=== PATIENT | female | born 1950 | race Caucasian/White ===

== ENCOUNTER → 2016-09-11 | Day surgery (SDC) | payer OTHER, MEDICARE ==
[2016-08-28 08:46] VITALS: BMI 31.0
[~2016-09-11] VITALS: Ht 175.3 cm; Wt 95.5 kg
[~2016-09-11] MED LIST: AMLO-110 PO; BUSP-8 PO; CHOL100027 PO; HYDR25TA4 PO; LEVO100T PO; LIDOCAINE HCL 2% 2 ML VIAL (20MG/ML) ONE; POTA1TAB97 PO; PROPOFOL IV EMULSION 10 MG/ML 20 ML VIAL IV ONE; RANI300T2 PO; RMCI; SODIUM CHLORIDE 0.9% 500ML 500 ML IV ONE
--- NOTE | 2016-09-11 08:52 | Endo History and Physical ---
History & Physical Date of Service: Sep 11, 2016. Chief Complaint: Ulcerative colitis Referring Physician: Dr. Sutton History of Present Illness 66 yo CF who presents for colonoscopy secondary to Ulcerative colitis. Past Medical History Gastrointestinal Disorder, Anxiety, Reflux, High Cholesterol, Hypertension, Kidney Disease Past Surgical History Hx Cardiac Surgery: No Hx Internal Defibrillator: No Hx Pacemaker: No Hx Abdominal Surgery: Yes (CONRAD BSO, CORI) Hx of Implantable Prosthesis: No Hx Post-Op Nausea and Vomiting: No Hx Cancer Surgery: No Hx Thoracic Surgery: No Hx Orthopedic: No Hx Urinary Tract Surgery: No Family History Polyp Social History Smoking Status: Former Smoker Hx Substance Use: No Hx Alcohol Use: No Allergies Coded Allergies: Amoxicillin (Verified Allergy, Intermediate, RASH, 08/28/16) Clavulanic Acid (Verified Allergy, Intermediate, RASH, 08/28/16) Citalopram (Verified Allergy, Unknown, SICK, 08/28/16) Latex1 -Allergic Contact Dermititis (Verified Allergy, Unknown, RASH, ) Oxycodone (Verified Allergy, Unknown, RASH, SICK TO STOMACH, 08/28/16) Current Medications Reported Home Medications Medications Dose Route/Sig Max Daily Dose Days Date Category Dose Instructions Zantac (Ranitidine HCl) 300 Mg Tab 300 Mg PO QPM 08/28/16 Reported Buspirone Hcl 10 Mg Tab 10 Mg PO HS 08/28/16 Reported Synthroid (Levothyroxine Sodium) 100 Mcg Tab 100 Mcg PO QAM 09/03/14 Reported Remicade (Infliximab) 100 Mg/10 Ml Inj 5 UD 04/02/14 Reported INFUSE 5 MG/KG/Q 8 WEEKS K-Tab (Potassium Chloride) 20 Meq Tab 20 Meq PO DAILY AT LUNCH 04/02/14 Reported Vitamin D 1000 Unit (Cholecalciferol) 1,000 Unit Cap 1,000 Inter.unit PO QAM 04/02/14 Reported Hctz (Hydrochlorothiazide) 25 Mg Tab 25 Mg PO QAM 04/16/12 Reported Vital Signs Weight (Kilograms): 95.45 Height (Feet): 5 Height (Inches): 9 Physical Exam General Appearance: WD/WN, no apparent distress Respiratory/Chest: Auscultation: breath sounds normal Cardiovascular: Heart Auscultation: RRR Abdomen: Bowel Sounds: normal Inspection & Palpation: soft, non-distended, no tenderness, guarding & rebound Assessment and Plan Assessment: 66 yo CF who presents for colonoscopy secondary to Ulcerative colitis. Plan: Proceed with Colonoscopy.
[2016-09-11 08:54] VITALS: Ht 175.3 cm; Wt 95.5 kg
--- NOTE | 2016-09-11 09:54 | GI REPORT ---
Procedure Date: 09/11/2016 9:17 AM Procedure: Colonoscopy Indications: Suspected left-sided chronic ulcerative colitis Medicines: Monitored Anesthesia Care Complications: No immediate complications. Estimated Blood Loss: Estimated blood loss: none. Procedure: Pre-Anesthesia Assessment: - Prior to the procedure, a History and Physical was performed, and patient medications and allergies were reviewed. The patient's tolerance of previous anesthesia was also reviewed. The risks and benefits of the procedure and the sedation options and risks were discussed with the patient. All questions were answered, and informed consent was obtained. Prior Anticoagulants: The patient has taken no previous anticoagulant or antiplatelet agents. ASA Grade Assessment: II - A patient with mild systemic disease. After reviewing the risks and benefits, the patient was deemed in satisfactory condition to undergo the procedure. After I obtained informed consent, the scope was passed under direct vision. Throughout the procedure, the patient's blood pressure, pulse, and oxygen saturations were monitored continuously. The scope was introduced through the anus and advanced to the terminal ileum. The colonoscopy was performed without difficulty. The patient tolerated the procedure well. The quality of the bowel preparation was good. The terminal ileum, ileocecal valve, appendiceal orifice, and rectum were photographed. Findings: Non-bleeding internal hemorrhoids were found during retroflexion. The hemorrhoids were small. Two biopsies were taken every 10 cm with a cold forceps from the entire colon for ulcerative colitis surveillance. These biopsy specimens were sent to Pathology. Impression: - Non-bleeding internal hemorrhoids. - Biopsies for surveillance were taken from the entire colon. Recommendation: - Resume previous diet. - Continue present medications. - Repeat colonoscopy for surveillance based on pathology results. - Return to primary care physician as previously scheduled. David Hammer DO 09/11/2016 9:53:46 AM This report has been signed electronically. Note Initiated On: 09/11/2016 9:17 AM I attest to the content of the Intraoperative Record and orders documented therein, exceptions below
--- NOTE | 2016-09-11 09:55 | Discharge Instructions ---
Endoscopy Patient Instructions Date / Procedure(s) Performed Sep 11, 2016. Colonoscopy Allergy Information Coded Allergies: Amoxicillin (Verified Allergy, Intermediate, RASH, 08/28/16) Clavulanic Acid (Verified Allergy, Intermediate, RASH, 08/28/16) Citalopram (Verified Allergy, Unknown, SICK, 08/28/16) Latex1 -Allergic Contact Dermititis (Verified Allergy, Unknown, RASH, ) Oxycodone (Verified Allergy, Unknown, RASH, SICK TO STOMACH, 08/28/16) Discharge Date / Findings Sep 11, 2016. Random colon biopsies Internal hemorrhoids Medication Instructions OK to resume all medications today as prescribed Medications Dose Route/Sig Max Daily Dose Days Date Category Dose Instructions Zantac (Ranitidine HCl) 300 Mg Tab 300 Mg PO QPM 08/28/16 Reported Buspirone Hcl 10 Mg Tab 10 Mg PO HS 08/28/16 Reported Synthroid (Levothyroxine Sodium) 100 Mcg Tab 100 Mcg PO QAM 09/03/14 Reported Remicade (Infliximab) 100 Mg/10 Ml Inj 5 UD 04/02/14 Reported INFUSE 5 MG/KG/Q 8 WEEKS K-Tab (Potassium Chloride) 20 Meq Tab 20 Meq PO DAILY AT LUNCH 04/02/14 Reported Vitamin D 1000 Unit (Cholecalciferol) 1,000 Unit Cap 1,000 Inter.unit PO QAM 04/02/14 Reported Hctz (Hydrochlorothiazide) 25 Mg Tab 25 Mg PO QAM 04/16/12 Reported Provider Instructions Activity Restrictions - No exercising or heavy lifting for 24 hours. - Do not drink alcohol the day of the procedure. - Do not drive a car or operate machinery until the day after the procedure. - Do not make any important decisions or sign important papers in 24 hours after the procedure. Following Day: - Return to full activity which may include returning to work/school. Diet Start your diet with liquids and light foods (jello, soup, juice, toast). Then eat your usual diet if not nauseated. Treatment For Common After Affects For mild abdominal pain, bloating, or excessive gas: - Rest - Eat lightly - Lie on right side Follow-Up Information Follow-up with DR AGUILAR as scheduled Anesthesia Information What You Should Know You have had a procedure that required some medicine to reduce anxiety and discomfort. This treatment is called moderate sedation. After receiving the treatment, you may be sleepy, but you will be able to breathe on your own. The effects of the treatment may last for several hours. Follow these instructions along with Activity/Diet recommendations noted above: * Do NOT do anything where dizziness or clumsiness would be dangerous. * Rest quietly at home today, then you can be up and about tomorrow. * Have a responsible person stay with you the rest of today. * You may have had an I.V. today. If so, you may take the dressing off later today. Recommendations Call your doctor if: * Trouble breathing * Continuous vomiting for more than 24 hours * Temperature above 101 degrees * Severe abdominal pain or bloating * Pain not relieved by pain medicine ordered * There is increased drainage or redness from any incision * A large amount of rectal bleeding greater than 2-3 tablespoons. (If you had a polyp/s removed or have hemorrhoids, a small amount of blood - from the rectum is to be expected.) * You have any unanswered questions or concerns. IN THE EVENT OF A SERIOUS EMERGENCY, GO TO THE NEAREST EMERGENCY ROOM Your discharge instructions were prepared by provider David Hammer. Patient Instructions Signature Page Courtney Paige Patient (or Guardian) Signature/Date: I have read and understand the instructions given to me by my caregivers. Caregiver/RN/Doctor Signature/Date: The above-named patient and/or guardian has received patient instructions on this date. + Original Patient Signature Page (only) stays with chart. Please make copy for patient.
--- NOTE | 2016-09-11 10:15 | Anesthesiology Progress Note ---
Anesthesia Post Op Note Date & Time Sep 11, 2016 at 10:14 Vital Signs Pain Intensity: 0 Vital Signs Past 12 Hours Date Time Temp Pulse Resp B/P (MAP) Pulse Ox O2 Delivery O2 Flow Rate FiO2 09/11/16 10:04 57 20 142/98 98 Room Air 09/11/16 09:49 66 24 141/84 (103) 98 Room Air 09/11/16 08:53 36.5 63 20 165/89 (114) 98 Room Air Notes Mental Status: alert / awake / arousable, participated in evaluation Pt Amnestic to Procedure: Yes Nausea / Vomiting: adequately controlled Pain: adequately controlled Airway Patency, RR, SpO2: stable & adequate BP & HR: stable & adequate Hydration State: stable & adequate Anesthetic Complications: no major complications apparent
[2016-09-11 10:19] VITALS: BP 157/93; PULSE 59; O2SAT 100
== END | disposition home or self-care (01) ==
LOC: C.GI 08:25
PROVIDERS: ATTEND Internal Medicine
DX: K51.90 Ulcerative colitis, unspecified, without complications (principal); K64.8 Other hemorrhoids; I10 Essential (primary) hypertension; E78.00 Pure hypercholesterolemia, unspecified; N28.9 Disorder of kidney and ureter, unspecified; K21.9 Gastro-esophageal reflux disease without esophagitis; F41.9 Anxiety disorder, unspecified; Z87.891 Personal history of nicotine dependence; Z83.71 Family history of colonic polyps; Z79.899 Other long term (current) drug therapy

== ENCOUNTER → 2016-09-17 | Outpatient (CLI) | payer OTHER, MEDICARE ==
[~2016-09-17] MED LIST changes: -LIDOCAINE HCL 2% 2 ML VIAL (20MG/ML) ONE; -PROPOFOL IV EMULSION 10 MG/ML 20 ML VIAL IV ONE; -SODIUM CHLORIDE 0.9% 500ML 500 ML IV ONE
[2016-09-17 11:40] LABS: HEMATOCRIT 41.9 % (37-47); MEAN CELL VOLUME 88.6 fL (80-100); MEAN CORPUSCULAR HEMOGLOBIN 29.8 pg (25-34); MEAN CORPUSCULAR HGB CONC 33.7 g/dl (32-36); MEAN PLATELET VOLUME 9.2 fL (7.4-10.4); PLATELET COUNT 289 K/uL (130-400); RED BLOOD COUNT 4.73 M/uL (4.2-5.4); WHITE BLOOD COUNT 6.01 K/uL (4.8-10.8)
[2016-09-17 12:19] LABS: ALT/SGPT 37 U/L (12-78); BLOOD UREA NITROGEN 10 mg/dl (7-18); BUN/CREATININE RATIO 10.7 (10-20); C-REACTIVE PROTEIN < 0.29 mg/dl (0-0.29); CALCIUM 8.8 mg/dl (8.5-10.1); CARBON DIOXIDE 29 mmol/L (21-32); CHLORIDE 104 mmol/L (98-107); CREATININE 0.95 mg/dl (0.60-1.20); GLUCOSE 83 mg/dl (70-99); POTASSIUM 3.5 mmol/L (3.5-5.1); SODIUM 140 mmol/L (136-145)
[2016-09-17 12:21] LABS: ALB/GLOB RATIO 1.1 (0.9-2); ALKALINE PHOSPHATASE 90 U/L (45-117); AST/SGOT 28 U/L (15-37)
[2016-09-17 12:45] LABS: BASO % 0.7 %; BASO ABS # 0.04 K/uL (0-0.2); COMPLETE YES; EOS % 3.2 %; IG% 0.2 %; LYMPH % 51.7 %; LYMPH ABS # 3.11 K/uL (1.2-3.4); MONO % 7.5 %; NEUT % 36.7 %
[2016-09-21 15:38] LABS: QUANTIF TB AG-NIL 0.01 IU/ML; QUANTIFERON NIL 0.03 IU/ML
== END | disposition home or self-care (01) ==
LOC: C.LAB1850 10:40
PROVIDERS: ATTEND Internal Medicine
DX: K51.90 Ulcerative colitis, unspecified, without complications (principal); K62.5 Hemorrhage of anus and rectum; R19.7 Diarrhea, unspecified

== ENCOUNTER 2016-10-06 09:43 | Emergency (ER) | payer OTHER, MEDICARE ==
[~2016-10-06] VITALS: Ht 177.8 cm; Wt 98.3 kg
[~2016-10-06 09:43] MED LIST changes: -AMLO-110 PO
[2016-10-06 09:55] VITALS: TEMP 36.7; Ht 177.8 cm; Wt 98.3 kg
[2016-10-06 11:20] LABS: BASO % 0.6 %; BASO ABS # 0.04 K/uL (0-0.2); COMPLETE YES; EOS % 3.5 %; HEMATOCRIT 45.7 % (37-47); IG% 0.3 %; LYMPH % 43.2 %; MEAN CELL VOLUME 88.2 fL (80-100); MEAN CORPUSCULAR HGB CONC 32.8 g/dl (32-36); MEAN PLATELET VOLUME 9.5 fL (7.4-10.4); MONO % 11.7 %; NEUT % 40.7 %; PLATELET COUNT 304 K/uL (130-400); RED BLOOD COUNT 5.18 M/uL (4.2-5.4); WHITE BLOOD COUNT 6.25 K/uL (4.8-10.8)
[2016-10-06 11:29] LABS: ALT/SGPT 52 U/L (12-78); AST/SGOT 30 U/L (15-37); BLOOD UREA NITROGEN 9 mg/dl (7-18); BUN/CREATININE RATIO 9.9 (10-20); CALCIUM 9.3 mg/dl (8.5-10.1); CARBON DIOXIDE 27 mmol/L (21-32); CHLORIDE 103 mmol/L (98-107); CREATININE 0.92 mg/dl (0.60-1.20); GLUCOSE 112 mg/dl (70-99); POTASSIUM 3.7 mmol/L (3.5-5.1); SODIUM 138 mmol/L (136-145)
--- NOTE | 2016-10-06 11:32 | DIAGNOSTIC IMAGING REPORT ---
HEAD WITHOUT CONTRAST (CT) HISTORY: 66-year-old female presents with acute right-sided headache with hypertension. TECHNIQUE: Multiple axial CT images of the head were obtained without contrast. COMPARISON: None. FINDINGS: No acute intracranial hemorrhage, midline shift, mass, large territorial ischemia or abnormal extra-axial collection. There is mild central atrophy. Confluent areas of low-attenuation are seen within the periventricular, deep and subcortical white matter of the cerebral hemispheres bilaterally. The calvarium is intact. The paranasal sinuses, mastoid air cells, and middle ear cavities are clear. IMPRESSION: 1. No acute intracranial abnormality. Negative for hemorrhage or large territorial ischemia. 2. Mild atrophy with chronic microvascular ischemic changes. The above report was generated using voice recognition software. It may contain grammatical, syntax or spelling errors. Electronically signed by: Bob Suarez M.D. 10/06/2016 11:31 AM Dictated Date/Time: 10/06/2016 11:28 AM
[2016-10-06 11:34] LABS: ALKALINE PHOSPHATASE 98 U/L (45-117)
--- NOTE | 2016-10-06 11:57 | DIAGNOSTIC IMAGING REPORT ---
CHEST ONE VIEW PORTABLE CLINICAL HISTORY: Chest Pain dyspnea COMPARISON STUDY: 11/25/2015 FINDINGS: The bones soft tissues and hemidiaphragms are normal. The cardiomediastinal silhouette is normal. The lungs are clear. The pulmonary vasculature is normal. IMPRESSION: Negative chest. Electronically signed by: Manoj Hobbs M.D. 10/06/2016 11:56 AM Dictated Date/Time: 10/06/2016 11:55 AM
[2016-10-06 14:52] VITALS: BP 166/105; PULSE 66; O2SAT 98
--- NOTE | 2016-10-06 17:33 | EMERGENCY ROOM VISIT NOTE ---
History Report prepared by Shakira: Domenic Quintanilla Under the Supervision of: Dr. Syed Galvan D.O. First contact with patient: 10:48 Chief Complaint: CARDIAC ASSESSMENT Stated Complaint: HIGH BLOOD PRESSURE Nursing Triage Summary: pt reports chest discomfort intermittently " indigestion" mid chest X 2 weeks , pt reports ORDOÑEZ 3-4 days . Had a remicaid infusion 1 day ago and BP 200/119 and cont with chest discomfort and ORDOÑEZ seems worse today denies NV or vision changes History of Present Illness The patient is a 66 year old female who presents to the Emergency Room with complaints of intermittent headaches beginning 5 days ago. She also complains of intermittent "indigestion/burning" in her chest. The patient notes that she had a Remicade infusion yesterday for ulcerative colitis and was found to have a blood pressure of 200/119. She states that she called her PCP about her symptoms and was referred to the ED. She notes that she frequently gets indigestion/burning after taking her medications specifically her potassium, but states that it typically resolved easily with Omeprazole. There is no exertional component. She denies any arm pain, jaw pain, sweating or shortness of breath. Patient notes that her burning is worse when she lies flat. It resolves/improves when she sits up. She also notes that her burning in her chest occurs generally 3-4 hours after taking her potassium pills. She has been having these symptoms for the past 4 years. Over the past week the same symptoms have gotten worse. She has doubled her PPI and notes that this does give her improvement in her symptoms. She has a known history of hypertension and hyperlipidemia, but has no history of cardiac disease. She had a cardiac catheterization last year after being short of breath with chest pain and arm numbness which was completely normal. Pt denies change in vision, fevers, arm pain, neck pain, nausea, vomiting, diarrhea, pain with urination, and melena. She states that she has been taking her blood pressure medications normally. She denies any recent changes to her medication. Source of History: patient Onset: 5 days ago Position: head Timing: intermittent Associated Symptoms: + chest pain ("indigestion"-like), No fevers, No neck pain, No SOB, No nausea, No vomiting, No diarrhea, No urinary symptoms Note: The patient also complains of hypertension. She denies any arm pain. Review of Systems See HPI for pertinent positives & negatives. A total of 10 systems reviewed and were otherwise negative. Past Medical & Surgical Medical Problems: (1) Anxiety disorder (2) Cholecystitis (3) CKD (chronic kidney disease) stage 3, GFR 30-59 ml/min (4) Dyslipidemia (5) Hypertension (6) Hypothyroidism (7) Ulcerative colitis Surgical Problems: (1) History of cardiac cath (2) History of hysterectomy (3) History of tonsillectomy and adenoidectomy (4) S/P cholecystectomy Family History No pertinent family history Social History Smoking Status: Never Smoker Alcohol Use: none Drug Use: none Housing Status: lives alone Occupation Status: unemployed Current/Historical Medications Scheduled Buspirone Hcl (Buspirone Hcl), 10 MG PO HS Cholecalciferol (Vitamin D 1000 Unit), 1,000 INTER.UNIT PO QAM Hydrochlorothiazide (Hctz), 25 MG PO QAM Infliximab (Remicade), 5 UD Levothyroxine Sodium (Synthroid), 100 MCG PO QAM Potassium Chloride (K-Tab), 20 MEQ PO DAILY AT LUNCH Allergies Coded Allergies: Amoxicillin (Verified Allergy, Intermediate, RASH, 08/28/16) Clavulanic Acid (Verified Allergy, Intermediate, RASH, 08/28/16) Citalopram (Verified Allergy, Unknown, SICK, 08/28/16) Latex1 -Allergic Contact Dermititis (Verified Allergy, Unknown, RASH, ) Oxycodone (Verified Allergy, Unknown, RASH, SICK TO STOMACH, 08/28/16) Physical Exam Vital Signs Date Time Temp Pulse Resp B/P (MAP) Pulse Ox O2 Delivery O2 Flow Rate FiO2 10/06/16 14:52 66 16 166/105 98 10/06/16 13:09 72 10/06/16 12:55 64 17 179/99 98 Room Air 10/06/16 11:16 64 15 161/95 97 Room Air 10/06/16 10:30 67 10/06/16 09:55 36.7 71 20 203/100 99 Room Air Physical Exam GENERAL: Sitting up in bed, alert, well appearing, well nourished, no distress, non-toxic EYE EXAM: normal conjunctiva, PERRL and EOM's intact OROPHARYNX: no exudate, no erythema, lips, buccal mucosa, and tongue normal and mucous membranes are moist NECK: supple, no nuchal rigidity, no adenopathy, non-tender LUNGS: Clear to auscultation. Normal chest wall mechanics HEART: no murmurs, S1 normal and S2 normal ABDOMEN: abdomen soft, non-tender, normo-active bowel sounds, no masses, no rebound or guarding. BACK: Back is symmetrical on inspection and there is no deformity, no midline tenderness, no CVA tenderness. SKIN: no rashes and no bruising UPPER EXTREMITIES: upper extremities are grossly normal. LOWER EXTREMITIES: No pitting edema. NEURO EXAM: Normal sensorium, cranial nerves II-XII intact, normal speech, no weakness of arms, no weakness of legs. No drift. Finger to nose intact. Gross sensation intact. Medical Decision & Procedures ER Provider Diagnostic Interpretation: Radiology results as stated below per my review and the radiologist's interpretation: HEAD WITHOUT CONTRAST (CT) FINDINGS: No acute intracranial hemorrhage, midline shift, mass, large territorial ischemia or abnormal extra-axial collection. There is mild central atrophy. Confluent areas of low-attenuation are seen within the periventricular, deep and subcortical white matter of the cerebral hemispheres bilaterally. The calvarium is intact. The paranasal sinuses, mastoid air cells, and middle ear cavities are clear. IMPRESSION: 1. No acute intracranial abnormality. Negative for hemorrhage or large territorial ischemia. 2. Mild atrophy with chronic microvascular ischemic changes. The above report was generated using voice recognition software. It may contain grammatical, syntax or spelling errors. Electronically signed by: Bob Suarez M.D. CHEST ONE VIEW PORTABLE FINDINGS: The bones soft tissues and hemidiaphragms are normal. The cardiomediastinal silhouette is normal. The lungs are clear. The pulmonary vasculature is normal. IMPRESSION: Negative chest. Electronically signed by: Manoj Hobbs M.D. Laboratory Results 10/06/16 10:24 Red Blood Count 5.18, Mean Corpuscular Volume 88.2, Mean Corpuscular Hemoglobin 29.0, Mean Corpuscular Hemoglobin Concent 32.8, Mean Platelet Volume 9.5, Neutrophils (%) (Auto) 40.7, Lymphocytes (%) (Auto) 43.2, Monocytes (%) (Auto) 11.7, Eosinophils (%) (Auto) 3.5, Basophils (%) (Auto) 0.6, Neutrophils # (Auto ) 2.54, Lymphocytes # (Auto) 2.70, Monocytes # (Auto) 0.73, Eosinophils # (Auto ) 0.22, Basophils # (Auto) 0.04 10/06/16 10:24 Test 10/06/16 10:24 10/06/16 13:45 White Blood Count 6.25 K/uL (4.8-10.8) Red Blood Count 5.18 M/uL (4.2-5.4) Hemoglobin 15.0 g/dL (12.0-16.0) Hematocrit 45.7 % (37-47) Mean Corpuscular Volume 88.2 fL (80-100) Mean Corpuscular Hemoglobin 29.0 pg (25-34) Mean Corpuscular Hemoglobin Concent 32.8 g/dl (32-36) Platelet Count 304 K/uL (130-400) Mean Platelet Volume 9.5 fL (7.4-10.4) Neutrophils (%) (Auto) 40.7 % Lymphocytes (%) (Auto) 43.2 % Monocytes (%) (Auto) 11.7 % Eosinophils (%) (Auto) 3.5 % Basophils (%) (Auto) 0.6 % Neutrophils # (Auto) 2.54 K/uL (1.4-6.5) Lymphocytes # (Auto) 2.70 K/uL (1.2-3.4) Monocytes # (Auto) 0.73 K/uL (0.11-0.59) Eosinophils # (Auto) 0.22 K/uL (0-0.5) Basophils # (Auto) 0.04 K/uL (0-0.2) RDW Standard Deviation 41.7 fL (36.4-46.3) RDW Coefficient of Variation 13.0 % (11.5-14.5) Immature Granulocyte % (Auto) 0.3 % Immature Granulocyte # (Auto) 0.02 K/uL (0.00-0.02) Anion Gap 8.0 mmol/L (3-11) Est Creatinine Clear Calc Drug Dose 76.4 ml/min Estimated GFR () 75.2 Estimated GFR (Non- 64.9 BUN/Creatinine Ratio 9.9 (10-20) Calcium Level 9.3 mg/dl (8.5-10.1) Total Bilirubin 0.3 mg/dl (0.2-1) Direct Bilirubin < 0.1 mg/dl (0-0.2) Aspartate Amino Transf (AST/SGOT) 30 U/L (15-37) Alanine Aminotransferase (ALT/SGPT) 52 U/L (12-78) Alkaline Phosphatase 98 U/L (45-117) Total Creatine Kinase 97 U/L (26-192) Creatine Kinase MB < 0.5 ng/ml (0.5-3.6) Creatine Kinase MB Ratio (0-3.0) Total Protein 7.5 gm/dl (6.4-8.2) Albumin 3.8 gm/dl (3.4-5.0) Lipase 227 U/L (73-393) Troponin I < 0.015 ng/ml (0-0.045) Laboratory results per my review. ECG Indication: chest pain Rate (beats per minute): 67 Rhythm: sinus rhythm Findings: no ectopy, other (Normal axis) Comparison ECG Date: November 25, 2015 Change: no significant change ED Course ED COURSE: Vital signs were reviewed and showed hypertension The patients medical record was reviewed The above diagnostic studies were performed and reviewed. ED treatments and interventions as stated above. 1054: The patient was evaluated in room B7. A complete history and physical examination was performed. 1301: I spoke with the patient and offered admission. She declined and would like to go home. She notes that her most recent reflux episode was about 4 hours ago. 1430: Upon reevaluation, the patient is resting comfortably. I discussed my findings with the patient and she understands and agrees with the treatment plan. Case management will set up outpatient follow-up for the patient. Based on the patients age, coexisting illnesses, exam and lab findings the decision to treat as an outpatient was made. The patient remained stable while under my care. The patient appeared well at the time of discharge. Medical Decision Differential Diagnosis includes but is not limited to headache, tension headache , cluster headache, migraine, subarachnoid hemorrhage, meningitis, mass, central venous thrombus, concussion, trauma and epidural/subdural hemorrhage. Blood pressure screening: Patient was found to have an elevated blood pressure and was referred to their primary doctor for recheck and further treatment. Medication Reconciliation: I attest that I have personally reviewed the patient' s current medication list. Patient is a 66-year-old female with a history of hypertension that presents the ER for headache, hypertension and a intermittent burning in her chest. She notes her headache has been intermittent for the past 4-5 days. No fevers. No signs of meningitis or encephalitis. CT head was negative. Chest x-ray was unremarkable. Patient's blood pressure was elevated at 200 the trended down to 160s without intervention. EKG was unremarkable. Patient also complains of a chest burning which she has had off-and-on for the past 4 years. She notes that recently has been getting worse. It is exacerbated by lying flat and she gets it almost consistently 3 hours after taking her oral potassium pills. This burning resolves with omeprazole and tracks from her epigastric region up to the back of her tongue. Last time she had these symptoms was at 3 AM. Troponins were negative 8 hours following this discomfort. Troponin was negative 2. And history supports that this is reflux. Offered observation patient declined. I felt this was reasonable patient was discharged follow with her PCP. Set up appointment for tomorrow with PCP however patient did not want to see the PA and consequently had to be scheduled for Wednesday. Discussed with Pt concerning signs and symptoms to watch out for. Pt was instructed to follow up with their PCP and discussed with the patient their option to return to the ED at anytime for persistent or worsening symptoms. The appropriate anticipatory guidance and out-patient management, including indications for return to the emergency department, were explained at length to the patient and understood. Impression Primary Impression: HTN (hypertension) Additional Impressions: Headache Acid reflux Scribe Attestation The scribe's documentation has been prepared under my direction and personally reviewed by me in its entirety. I confirm that the note above accurately reflects all work, treatment, procedures, and medical decision making performed by me. Departure Information Dispostion Home / Self-Care Referrals Ad Sutton M.D. (PCP) Forms IMPORTANT VISIT INFORMATION Patient Instructions ED GERD, ED HTN Established, My [facility] Additional Instructions Please follow up with your primary care doctor with in the next 24 hours. Any worsening of your symptoms, please return to the ED immediately. For chest pain , shortness breath, arm pain, jaw pain, swelling, confusion, weakness or numbness in arms or legs, or any other concerning signs or symptoms from your standpoint. Problem Qualifiers Primary Impression: HTN (hypertension) Hypertension type: unspecified Qualified Codes: I10 - Essential (primary) hypertension Additional Impressions: Headache Headache type: unspecified Headache chronicity pattern: acute headache Intractability: not intractable Qualified Codes: R51 - Headache Acid reflux Esophagitis presence: esophagitis presence not specified Qualified Codes: K21.9 - Gastro-esophageal reflux disease without esophagitis
[2016-11-20] MEDS ORDERED: RANI300T2 PO (07:40)
[2016-11-20] MEDS ORDERED: AMLO-110 PO (07:40)
== END 2016-10-06 14:53 | disposition home or self-care (01) ==
LOC: C.EDB 09:45
DX: I10 Essential (primary) hypertension (principal); R51 Headache; K21.9 Gastro-esophageal reflux disease without esophagitis; F41.9 Anxiety disorder, unspecified; N18.3 Chronic kidney disease, stage 3 (moderate); E78.5 Hyperlipidemia, unspecified; E03.9 Hypothyroidism, unspecified; K51.90 Ulcerative colitis, unspecified, without complications; Z79.899 Other long term (current) drug therapy

== ENCOUNTER → 2016-11-27 | Day surgery (SDC) | payer OTHER, MEDICARE ==
[2016-11-20 07:41] VITALS: BMI 31.0
[2016-11-20 07:47] VITALS: Ht 175.3 cm; Wt 95.5 kg
[~2016-11-27] VITALS: Ht 175.3 cm; Wt 95.5 kg
[~2016-11-27] MED LIST changes: +AMLO-110 PO; +LIDOCAINE HCL 2% 2 ML VIAL (20MG/ML) ONE; +PROPOFOL IV EMULSION 10 MG/ML 20 ML VIAL IV ONE; +SODIUM CHLORIDE 0.9% 500ML 500 ML IV ONE
--- NOTE | 2016-11-27 12:14 | Endo History and Physical ---
History & Physical Date of Service: Nov 27, 2016. Chief Complaint: Rectal Bleeding/ Indigestion and Burning Referring Physician: Dr Sutton History of Present Illness 66 yo CF who presents for colonoscopy secondary to rectal bleeding and EGD secondary to indigestion, burning and rectal bleeding. Past Medical History Gastrointestinal Disorder, Anxiety, Reflux, High Cholesterol, Hypertension, Kidney Disease Past Surgical History Hx Cardiac Surgery: No Hx Internal Defibrillator: No Hx Pacemaker: No Hx Abdominal Surgery: Yes (CONRAD BSO, CORI) Hx of Implantable Prosthesis: No Hx Post-Op Nausea and Vomiting: No Hx Cancer Surgery: No Hx Thoracic Surgery: No Hx Orthopedic: No Hx Urinary Tract Surgery: No Family History Polyp Social History Smoking Status: Former Smoker Hx Substance Use: No Hx Alcohol Use: No Allergies Coded Allergies: Amoxicillin (Verified Allergy, Intermediate, RASH, 11/27/16) Clavulanic Acid (Verified Allergy, Intermediate, RASH, 11/27/16) Citalopram (Verified Allergy, Unknown, SICK, 11/27/16) Clindamycin (Verified Allergy, Unknown, "MAKES MY COLITIS BLEED", 11/27/16) Latex1 -Allergic Contact Dermititis (Verified Allergy, Unknown, RASH, ) Oxycodone (Verified Allergy, Unknown, RASH, SICK TO STOMACH, 11/27/16) Current Medications Reported Home Medications Medications Dose Route/Sig Max Daily Dose Days Date Category Dose Instructions Zantac (Ranitidine HCl) 300 Mg Tab 300 Mg PO BID 11/20/16 Reported Norvasc (Amlodipine Besylate) 5 Mg Tab 5 Mg PO QAM 11/20/16 Reported Buspirone Hcl 10 Mg Tab 10 Mg PO HS 08/28/16 Reported Synthroid (Levothyroxine Sodium) 100 Mcg Tab 100 Mcg PO QAM 09/03/14 Reported Remicade (Infliximab) 100 Mg/10 Ml Inj 5 UD 04/02/14 Reported INFUSE 5 MG/KG/Q 8 WEEKS K-Tab (Potassium Chloride) 20 Meq Tab 20 Meq PO DAILY AT LUNCH 04/02/14 Reported Vitamin D 1000 Unit (Cholecalciferol) 1,000 Unit Cap 1,000 Inter.unit PO QAM 04/02/14 Reported Hctz (Hydrochlorothiazide) 25 Mg Tab 25 Mg PO QAM 04/16/12 Reported Vital Signs Weight (Kilograms): 95.45 Height (Feet): 5 Height (Inches): 9 Physical Exam General Appearance: WD/WN, no apparent distress Respiratory/Chest: Auscultation: breath sounds normal Cardiovascular: Heart Auscultation: RRR Abdomen: Bowel Sounds: normal Inspection & Palpation: soft, non-distended, no tenderness, guarding & rebound Assessment and Plan Assessment: 66 yo CF who presents for colonoscopy secondary to rectal bleeding and EGD secondary to indigestion, burning and rectal bleeding. Plan: Proceed with EGD and Colonoscopy.
--- NOTE | 2016-11-27 12:55 | GI REPORT ---
Procedure Date: 11/27/2016 12:07 PM Procedure: Upper GI endoscopy Indications: Epigastric abdominal pain, Gastro-esophageal reflux disease Medicines: Monitored Anesthesia Care Complications: No immediate complications. Estimated Blood Loss: Estimated blood loss: none. Procedure: Pre-Anesthesia Assessment: - Prior to the procedure, a History and Physical was performed, and patient medications and allergies were reviewed. The patient's tolerance of previous anesthesia was also reviewed. The risks and benefits of the procedure and the sedation options and risks were discussed with the patient. All questions were answered, and informed consent was obtained. Prior Anticoagulants: The patient has taken no previous anticoagulant or antiplatelet agents. ASA Grade Assessment: II - A patient with mild systemic disease. After reviewing the risks and benefits, the patient was deemed in satisfactory condition to undergo the procedure. After obtaining informed consent, the endoscope was passed under direct vision. Throughout the procedure, the patient's blood pressure, pulse, and oxygen saturations were monitored continuously. The scope was introduced through the mouth, and advanced to the second part of duodenum. The upper GI endoscopy was accomplished without difficulty. The patient tolerated the procedure well. Findings: Mildly severe esophagitis with no bleeding was found. Biopsies were taken with a cold forceps for histology. Localized moderate inflammation characterized by erythema was found in the gastric antrum. Biopsies were taken with a cold forceps for histology. The examined duodenum was normal. Impression: - Mildly severe chronic esophagitis. Biopsied. - Gastritis. Biopsied. - Normal examined duodenum. Recommendation: - Resume previous diet. - Continue present medications. - Await pathology results. - Return to primary care physician as previously scheduled. David Hammer, 11/27/2016 12:55:31 PM This report has been signed electronically. Note Initiated On: 11/27/2016 12:07 PM I attest to the content of the Intraoperative Record and orders documented therein, exceptions below
--- NOTE | 2016-11-27 12:58 | GI REPORT ---
Procedure Date: 11/27/2016 12:08 PM Procedure: Colonoscopy Indications: Rectal bleeding Medicines: Monitored Anesthesia Care Complications: No immediate complications. Estimated Blood Loss: Estimated blood loss: none. Procedure: Pre-Anesthesia Assessment: - Prior to the procedure, a History and Physical was performed, and patient medications and allergies were reviewed. The patient's tolerance of previous anesthesia was also reviewed. The risks and benefits of the procedure and the sedation options and risks were discussed with the patient. All questions were answered, and informed consent was obtained. Prior Anticoagulants: The patient has taken no previous anticoagulant or antiplatelet agents. ASA Grade Assessment: II - A patient with mild systemic disease. After reviewing the risks and benefits, the patient was deemed in satisfactory condition to undergo the procedure. After I obtained informed consent, the scope was passed under direct vision. Throughout the procedure, the patient's blood pressure, pulse, and oxygen saturations were monitored continuously. The scope was introduced through the anus and advanced to the terminal ileum. The colonoscopy was performed without difficulty. The patient tolerated the procedure well. The quality of the bowel preparation was good. The terminal ileum, ileocecal valve, appendiceal orifice, and rectum were photographed. Findings: Inflammation characterized by erythema was found in a continuous and circumferential pattern from the rectum to the cecum. This was mild in severity. Biopsies were taken with a cold forceps for histology. Non-bleeding internal hemorrhoids were found during retroflexion. The hemorrhoids were small. Impression: - Inflammation was found from the rectum to the cecum secondary to pancolitis ulcerative colitis. Biopsied. - Non-bleeding internal hemorrhoids. Recommendation: - Resume previous diet. - Continue present medications. - Repeat colonoscopy for surveillance based on pathology results. - Return to primary care physician as previously scheduled. David Hammer DO 11/27/2016 12:57:41 PM This report has been signed electronically. Note Initiated On: 11/27/2016 12:08 PM I attest to the content of the Intraoperative Record and orders documented therein, exceptions below
--- NOTE | 2016-11-27 13:02 | Discharge Instructions ---
Endoscopy Patient Instructions Date / Procedure(s) Performed Nov 27, 2016. Colonoscopy, EGD Allergy Information Coded Allergies: Amoxicillin (Verified Allergy, Intermediate, RASH, 11/27/16) Clavulanic Acid (Verified Allergy, Intermediate, RASH, 11/27/16) Citalopram (Verified Allergy, Unknown, SICK, 11/27/16) Clindamycin (Verified Allergy, Unknown, "MAKES MY COLITIS BLEED", 11/27/16) Latex1 -Allergic Contact Dermititis (Verified Allergy, Unknown, RASH, ) Oxycodone (Verified Allergy, Unknown, RASH, SICK TO STOMACH, 11/27/16) Discharge Date / Findings Nov 27, 2016. EGD: Gastritis s/p biopsies, Mid-esophageal biopsies Colonoscopy: Ulcerative colitis s/p biopsies, Internal hemorrhoids Medication Instructions OK to resume all medications today as prescribed Reported Home Medications Medications Dose Route/Sig Max Daily Dose Days Date Category Dose Instructions Zantac (Ranitidine HCl) 300 Mg Tab 300 Mg PO BID 11/20/16 Reported Norvasc (Amlodipine Besylate) 5 Mg Tab 5 Mg PO QAM 11/20/16 Reported Buspirone Hcl 10 Mg Tab 10 Mg PO HS 08/28/16 Reported Synthroid (Levothyroxine Sodium) 100 Mcg Tab 100 Mcg PO QAM 09/03/14 Reported Remicade (Infliximab) 100 Mg/10 Ml Inj 5 UD 04/02/14 Reported INFUSE 5 MG/KG/Q 8 WEEKS K-Tab (Potassium Chloride) 20 Meq Tab 20 Meq PO DAILY AT LUNCH 04/02/14 Reported Vitamin D 1000 Unit (Cholecalciferol) 1,000 Unit Cap 1,000 Inter.unit PO QAM 04/02/14 Reported Hctz (Hydrochlorothiazide) 25 Mg Tab 25 Mg PO QAM 04/16/12 Reported Provider Instructions Activity Restrictions - No exercising or heavy lifting for 24 hours. - Do not drink alcohol the day of the procedure. - Do not drive a car or operate machinery until the day after the procedure. - Do not make any important decisions or sign important papers in 24 hours after the procedure. Following Day: - Return to full activity which may include returning to work/school. Diet Start your diet with liquids and light foods (jello, soup, juice, toast). Then eat your usual diet if not nauseated. Treatment For Common After Affects For mild abdominal pain, bloating, or excessive gas: - Rest - Eat lightly - Lie on right side Follow-Up Information Follow-up with Dr Sutton as scheduled Anesthesia Information What You Should Know You have had a procedure that required some medicine to reduce anxiety and discomfort. This treatment is called moderate sedation. After receiving the treatment, you may be sleepy, but you will be able to breathe on your own. The effects of the treatment may last for several hours. Follow these instructions along with Activity/Diet recommendations noted above: * Do NOT do anything where dizziness or clumsiness would be dangerous. * Rest quietly at home today, then you can be up and about tomorrow. * Have a responsible person stay with you the rest of today. * You may have had an I.V. today. If so, you may take the dressing off later today. Recommendations Call your doctor if: * Trouble breathing * Continuous vomiting for more than 24 hours * Temperature above 101 degrees * Severe abdominal pain or bloating * Pain not relieved by pain medicine ordered * There is increased drainage or redness from any incision * A large amount of rectal bleeding greater than 2-3 tablespoons. (If you had a polyp/s removed or have hemorrhoids, a small amount of blood - from the rectum is to be expected.) * You have any unanswered questions or concerns. IN THE EVENT OF A SERIOUS EMERGENCY, GO TO THE NEAREST EMERGENCY ROOM Your discharge instructions were prepared by provider David Hammer. Patient Instructions Signature Page Courtney Paige Patient (or Guardian) Signature/Date: I have read and understand the instructions given to me by my caregivers. Caregiver/RN/Doctor Signature/Date: The above-named patient and/or guardian has received patient instructions on this date. + Original Patient Signature Page (only) stays with chart. Please make copy for patient.
--- NOTE | 2016-11-27 13:14 | Anesthesiology Progress Note ---
Anesthesia Post Op Note Date & Time Nov 27, 2016 at 13:14 Vital Signs Pain Intensity: 0 Vital Signs Past 12 Hours Date Time Temp Pulse Resp B/P (MAP) Pulse Ox O2 Delivery O2 Flow Rate FiO2 11/27/16 12:52 67 18 132/ (44) 98 Room Air 11/27/16 12:12 36.6 79 16 133/75 (94) 97 Room Air Notes Mental Status: alert / awake / arousable, participated in evaluation Pt Amnestic to Procedure: Yes Nausea / Vomiting: adequately controlled Pain: adequately controlled Airway Patency, RR, SpO2: stable & adequate BP & HR: stable & adequate Hydration State: stable & adequate Anesthetic Complications: no major complications apparent
[2016-11-27 13:23] VITALS: BP 152/90; PULSE 67; O2SAT 98
== END | disposition home or self-care (01) ==
LOC: C.GI 11:46
PROVIDERS: ATTEND Internal Medicine
DX: K29.50 Unspecified chronic gastritis without bleeding (principal); K20.9 Esophagitis, unspecified; K64.8 Other hemorrhoids; R10.13 Epigastric pain; K51.90 Ulcerative colitis, unspecified, without complications; I12.9 Hypertensive chronic kidney disease with stage 1 through stage 4 chronic kidney disease, or unspecified chronic kidney disease; N18.9 Chronic kidney disease, unspecified; E78.00 Pure hypercholesterolemia, unspecified; Z87.891 Personal history of nicotine dependence

== ENCOUNTER → 2017-04-07 | Outpatient (CLI) | payer OTHER, MEDICARE ==
[~2017-04-07] MED LIST changes: -LIDOCAINE HCL 2% 2 ML VIAL (20MG/ML) ONE; -PROPOFOL IV EMULSION 10 MG/ML 20 ML VIAL IV ONE; -SODIUM CHLORIDE 0.9% 500ML 500 ML IV ONE
[2017-04-07 13:18] LABS: BASO % 0.6 %; BASO ABS # 0.04 K/uL (0-0.2); EOS % 2.8 %; EOS ABS # 0.18 K/uL (0-0.5); HEMATOCRIT 42.6 % (37-47); HEMOGLOBIN 14.4 g/dL (12.0-16.0); IG# 0.01 K/uL (0.00-0.02); LYMPH % 47.4 %; LYMPH ABS # 3.05 K/uL (1.2-3.4); MEAN CELL VOLUME 87.7 fL (80-100); MEAN CORPUSCULAR HEMOGLOBIN 29.6 pg (25-34); MEAN CORPUSCULAR HGB CONC 33.8 g/dl (32-36); MEAN PLATELET VOLUME 9.4 fL (7.4-10.4); MONO % 9.5 %; MONO ABS # 0.61 K/uL (0.11-0.59); NEUT % 39.5 %; NEUT ABS # 2.55 K/uL (1.4-6.5); PLATELET COUNT 301 K/uL (130-400); RED CELL DISTRIBUTION WIDTH CV 13.1 % (11.5-14.5); RED CELL DISTRIBUTION WIDTH SD 41.7 fL (36.4-46.3); WHITE BLOOD COUNT 6.44 K/uL (4.8-10.8)
[2017-04-07 13:53] LABS: ALT/SGPT 35 U/L (12-78); AST/SGOT 25 U/L (15-37); BLOOD UREA NITROGEN 13 mg/dl (7-18); CALCIUM 9.4 mg/dl (8.5-10.1); CARBON DIOXIDE 29 mmol/L (21-32); CREATININE 0.96 mg/dl (0.60-1.20); GLUCOSE 90 mg/dl (70-99); POTASSIUM 3.3 mmol/L (3.5-5.1); SODIUM 136 mmol/L (136-145); TOTAL PROTEIN 7.9 gm/dl (6.4-8.2)
[2017-04-07 13:54] LABS: ALKALINE PHOSPHATASE 87 U/L (45-117)
== END | disposition home or self-care (01) ==
LOC: C.LAB 11:48
PROVIDERS: ATTEND Registered Nurse
DX: K20.0 Eosinophilic esophagitis (principal)

== ENCOUNTER → 2017-05-18 | Outpatient (CLI) | payer OTHER, MEDICARE | END | disposition home or self-care (01) | LOC: C.LAB 09:34 | PROVIDERS: ATTEND Registered Nurse | DX: K51.90 Ulcerative colitis, unspecified, without complications (principal) ==

== ENCOUNTER → 2017-05-31 | Day surgery (SDC) | payer OTHER, MEDICARE ==
[2017-05-20 15:17] VITALS: Ht 175.3 cm; Wt 95.5 kg
[~2017-05-31] VITALS: Ht 175.3 cm; Wt 95.5 kg
[~2017-05-31] MED LIST changes: +FENTANYL CITRATE INJ 50 MCG/1 ML 2 ML VIAL ONE; +FLUMAZENIL 0.1 MG/1 ML 10 ML VIAL IV ONE; +LIDOCAINE HCL 2% 2 ML VIAL (20MG/ML) ONE; +PRLSR20 PO; +PROPOFOL IV EMULSION 10 MG/ML 20 ML VIAL IV ONE; +SODIUM CHLORIDE 0.9% 500ML 500 ML IV ONE
--- NOTE | 2017-05-31 11:16 | Endo History and Physical ---
History & Physical Date of Service: May 31, 2017. Chief Complaint: EOE Referring Physician: DR AGUILAR History of Present Illness 66 yo CF who presents for EGD secondary to Eosinophilic esophagitis. Past Medical History Gastrointestinal Disorder, Anxiety, Reflux, High Cholesterol, Hypertension, Kidney Disease Past Surgical History Hx Cardiac Surgery: No Hx Internal Defibrillator: No Hx Pacemaker: No Hx Abdominal Surgery: Yes (CONRAD BSO, CORI) Hx of Implantable Prosthesis: No Hx Post-Op Nausea and Vomiting: No Hx Cancer Surgery: No Hx Thoracic Surgery: No Hx Orthopedic: No Hx Urinary Tract Surgery: No Family History Polyp Social History Smoking Status: Former Smoker Hx Substance Use: No Hx Alcohol Use: No Allergies Coded Allergies: Amoxicillin (Verified Allergy, Intermediate, RASH, 05/31/17) Clavulanic Acid (Verified Allergy, Intermediate, RASH, 05/31/17) Citalopram (Verified Allergy, Unknown, SICK, 05/31/17) Clindamycin (Verified Allergy, Unknown, "MAKES MY COLITIS BLEED", 05/31/17) Latex1 -Allergic Contact Dermititis (Verified Allergy, Unknown, RASH, ) Oxycodone (Verified Allergy, Unknown, RASH, SICK TO STOMACH, 05/31/17) Current Medications Reported Home Medications Medications Dose Route/Sig Max Daily Dose Days Date Category Dose Instructions Prilosec (Omeprazole) 20 Mg Capcr 20 Mg PO DAILY 05/31/17 Reported Norvasc (Amlodipine Besylate) 5 Mg Tab 5 Mg PO QAM 11/20/16 Reported Buspirone Hcl 10 Mg Tab 10 Mg PO HS 08/28/16 Reported Synthroid (Levothyroxine Sodium) 100 Mcg Tab 100 Mcg PO QAM 09/03/14 Reported Remicade (Infliximab) 100 Mg/10 Ml Inj 5 UD 04/02/14 Reported INFUSE 5 MG/KG Q 6 WEEKS K-Tab (Potassium Chloride) 20 Meq Tab 20 Meq PO DAILY AT LUNCH 04/02/14 Reported Vitamin D 1000 Unit (Cholecalciferol) 1,000 Unit Cap 1,000 Inter.unit PO QAM 04/02/14 Reported Hctz (Hydrochlorothiazide) 25 Mg Tab 25 Mg PO QAM 04/16/12 Reported Vital Signs Weight (Kilograms): 95.45 Height (Feet): 5 Height (Inches): 9 Date Time Temp Pulse Resp B/P (MAP) Pulse Ox O2 Delivery O2 Flow Rate FiO2 05/31/17 11:05 36.6 62 18 145/87 (106) 97 Room Air Physical Exam General Appearance: WD/WN, no apparent distress Respiratory/Chest: Auscultation: breath sounds normal Cardiovascular: Heart Auscultation: RRR Abdomen: Bowel Sounds: normal Inspection & Palpation: soft, non-distended, no tenderness, guarding & rebound Assessment and Plan Assessment: 66 yo CF who presents for EGD secondary to Eosinophilic esophagitis. Plan: Proceed with EGD.
--- NOTE | 2017-05-31 12:38 | Discharge Instructions ---
Endoscopy Patient Instructions Date / Procedure(s) Performed May 31, 2017. EGD Allergy Information Coded Allergies: Amoxicillin (Verified Allergy, Intermediate, RASH, 05/31/17) Clavulanic Acid (Verified Allergy, Intermediate, RASH, 05/31/17) Citalopram (Verified Allergy, Unknown, SICK, 05/31/17) Clindamycin (Verified Allergy, Unknown, "MAKES MY COLITIS BLEED", 05/31/17) Latex1 -Allergic Contact Dermititis (Verified Allergy, Unknown, RASH, ) Oxycodone (Verified Allergy, Unknown, RASH, SICK TO STOMACH, 05/31/17) Discharge Date / Findings May 31, 2017. Eosinophilic esophagitis with biopsies Gastritis Medication Instructions 1) Increase Omeprazole to 20mg by mouth twice daily 1/2 hour prior to breakfast and dinner. 2) OK to resume all medications today as prescribed Reported Home Medications Medications Dose Route/Sig Max Daily Dose Days Date Category Dose Instructions Prilosec (Omeprazole) 20 Mg Capcr 20 Mg PO DAILY 05/31/17 Reported Norvasc (Amlodipine Besylate) 5 Mg Tab 5 Mg PO QAM 11/20/16 Reported Buspirone Hcl 10 Mg Tab 10 Mg PO HS 08/28/16 Reported Synthroid (Levothyroxine Sodium) 100 Mcg Tab 100 Mcg PO QAM 09/03/14 Reported Remicade (Infliximab) 100 Mg/10 Ml Inj 5 UD 04/02/14 Reported INFUSE 5 MG/KG Q 6 WEEKS K-Tab (Potassium Chloride) 20 Meq Tab 20 Meq PO DAILY AT LUNCH 04/02/14 Reported Vitamin D 1000 Unit (Cholecalciferol) 1,000 Unit Cap 1,000 Inter.unit PO QAM 04/02/14 Reported Hctz (Hydrochlorothiazide) 25 Mg Tab 25 Mg PO QAM 04/16/12 Reported Provider Instructions Activity Restrictions - No exercising or heavy lifting for 24 hours. - Do not drink alcohol the day of the procedure. - Do not drive a car or operate machinery until the day after the procedure. - Do not make any important decisions or sign important papers in 24 hours after the procedure. Following Day: - Return to full activity which may include returning to work/school. Diet Start your diet with liquids and light foods (jello, soup, juice, toast). Then eat your usual diet if not nauseated. Treatment For Common After Affects For mild abdominal pain, bloating, or excessive gas: - Rest - Eat lightly - Lie on right side Follow-Up Information Follow-up with DR AGUILRA as scheduled Anesthesia Information What You Should Know You have had a procedure that required some medicine to reduce anxiety and discomfort. This treatment is called moderate sedation. After receiving the treatment, you may be sleepy, but you will be able to breathe on your own. The effects of the treatment may last for several hours. Follow these instructions along with Activity/Diet recommendations noted above: * Do NOT do anything where dizziness or clumsiness would be dangerous. * Rest quietly at home today, then you can be up and about tomorrow. * Have a responsible person stay with you the rest of today. * You may have had an I.V. today. If so, you may take the dressing off later today. Recommendations Call your doctor if: * Trouble breathing * Continuous vomiting for more than 24 hours * Temperature above 101 degrees * Severe abdominal pain or bloating * Pain not relieved by pain medicine ordered * There is increased drainage or redness from any incision * A large amount of rectal bleeding greater than 2-3 tablespoons. (If you had a polyp/s removed or have hemorrhoids, a small amount of blood - from the rectum is to be expected.) * You have any unanswered questions or concerns. IN THE EVENT OF A SERIOUS EMERGENCY, GO TO THE NEAREST EMERGENCY ROOM Your discharge instructions were prepared by provider David Hammer. Patient Instructions Signature Page Courtney Paige Patient (or Guardian) Signature/Date: I have read and understand the instructions given to me by my caregivers. Caregiver/RN/Doctor Signature/Date: The above-named patient and/or guardian has received patient instructions on this date. + Original Patient Signature Page (only) stays with chart. Please make copy for patient.
--- NOTE | 2017-05-31 12:38 | GI REPORT ---
Procedure Date: 05/31/2017 11:58 AM Procedure: Upper GI endoscopy Indications: Follow-up of eosinophilic esophagitis Medicines: Monitored Anesthesia Care Complications: No immediate complications. Estimated Blood Loss: Estimated blood loss: none. Procedure: Pre-Anesthesia Assessment: - Prior to the procedure, a History and Physical was performed, and patient medications and allergies were reviewed. The patient's tolerance of previous anesthesia was also reviewed. The risks and benefits of the procedure and the sedation options and risks were discussed with the patient. All questions were answered, and informed consent was obtained. Prior Anticoagulants: The patient has taken no previous anticoagulant or antiplatelet agents. ASA Grade Assessment: II - A patient with mild systemic disease. After reviewing the risks and benefits, the patient was deemed in satisfactory condition to undergo the procedure. After obtaining informed consent, the endoscope was passed under direct vision. Throughout the procedure, the patient's blood pressure, pulse, and oxygen saturations were monitored continuously. The scope was introduced through the mouth, and advanced to the second part of duodenum. The upper GI endoscopy was accomplished without difficulty. The patient tolerated the procedure well. Findings: Mucosal changes including ringed esophagus and longitudinal furrows were found in the entire esophagus. Biopsies were taken with a cold forceps for histology. Localized mild inflammation characterized by erythema was found in the gastric fundus. The examined duodenum was normal. Impression: - Esophageal mucosal changes consistent with eosinophilic esophagitis. Biopsied. - Gastritis. - Normal examined duodenum. Recommendation: - Resume previous diet. - Increase Prilosec (omeprazole) to 20 mg PO BID. - Await pathology results. - Return to primary care physician as previously scheduled. David Hammer, DO 05/31/2017 12:37:58 PM This report has been signed electronically. Note Initiated On: 05/31/2017 11:58 AM I attest to the content of the Intraoperative Record and orders documented therein, exceptions below
[2017-05-31 13:08] VITALS: BP 145/83; PULSE 65; O2SAT 99
--- NOTE | 2017-05-31 13:08 | Anesthesiology Progress Note ---
Anesthesia Post Op Note Date & Time May 31, 2017 at 13:07 Vital Signs Pain Intensity: 0 Vital Signs Past 12 Hours Date Time Temp Pulse Resp B/P (MAP) Pulse Ox O2 Delivery O2 Flow Rate FiO2 05/31/17 12:50 60 16 112/71 (85) 99 Room Air 05/31/17 12:35 57 16 130/75 (93) 100 Room Air 05/31/17 11:05 36.6 62 18 145/87 (106) 97 Room Air Notes Mental Status: alert / awake / arousable, participated in evaluation Pt Amnestic to Procedure: Yes Nausea / Vomiting: adequately controlled Pain: adequately controlled Airway Patency, RR, SpO2: stable & adequate BP & HR: stable & adequate Hydration State: stable & adequate Anesthetic Complications: no major complications apparent
== END | disposition home or self-care (01) ==
LOC: C.GI 10:41
PROVIDERS: ATTEND Internal Medicine
DX: K20.0 Eosinophilic esophagitis (principal); F41.9 Anxiety disorder, unspecified; K21.9 Gastro-esophageal reflux disease without esophagitis; E78.00 Pure hypercholesterolemia, unspecified; I10 Essential (primary) hypertension; Z90.710 Acquired absence of both cervix and uterus; Z90.49 Acquired absence of other specified parts of digestive tract; Z83.71 Family history of colonic polyps; Z87.891 Personal history of nicotine dependence; Z88.1 Allergy status to other antibiotic agents; Z88.5 Allergy status to narcotic agent; Z88.8 Allergy status to other drugs, medicaments and biological substances; Z91.040 Latex allergy status

== ENCOUNTER 2025-02-08 10:00 | Inpatient (IN) ==
[2025-02-08 11:00] LABS: Influenza A virus by PCR Negative (Neg); Influenza B virus by PCR Negative (Neg); SARS CoV2 RNA(COVID-19) Ceph POSITIVE (Negative)
[2025-02-08 11:29] LABS: Hematocrit (blood only) 40.7 % (37.0-47.0); Hemoglobin 15.3 g/dL (12.0-16.0); Immature Granulocytes # (auto) 0.00 K/uL (0.01-0.20); Immature Granulocytes % (auto) 0.0 %; Mean Corpuscular Hemoglobin 29.8 pg (25.0-34.0); Mean Corpuscular Volume 79.3 fL (80.0-100.0); Platelet Count 235 K/uL (130-400); Polychromasia 1+; RDW Standard Deviation 33.4 fL (36.4-46.3); Red Blood Count 5.13 M/uL (4.20-5.40); White Blood Count 2.23 K/ul (4.8-10.8)
[2025-02-08 11:45] LABS: Alanine Aminotransferase 26 U/L (7-52); Albumin Globulin Ratio 1.4 (0.9-2); Albumin Level 4.3 gm/dl (3.4-5.0); Alkaline Phosphatase 63 U/L (34-104); Anion Gap 12 (3-11); Bilirubin,Total 1.0 mg/dl (0.2-1.0); Blood Urea Nitrogen 7 mg/dl (6-23); Calcium 9.2 mg/dl (8.6-10.3); Carbon Dioxide 27 mmol/L (21-32); Chloride 78 mmol/L (98-107); Globulin 3.0 gm/dl (2.5-4.0); Glucose 147 mg/dl (70-99(Fasting)); Potassium 2.7 mmol/L (3.5-5.1); Sodium 117 mmol/L (136-145); Total Protein 7.3 gm/dl (6.0-8.3)
--- NOTE | 2025-02-08 14:40 | CT Scan Report ---
CT head/brain wo con CLINICAL HISTORY: COUGH, COVID. TECHNIQUE: Multiple axial CT images of the head were obtained without contrast. A dose lowering tech nique was utilized adhering to the principles of ALARA. CT DOSE: 625.8 mGy.cm COMPARISON: None FINDINGS: There is moderate diffuse patchy periventricular hypodensity. This is nonspecific, but usua lly represents chronic small vessel ischemic change. No intracranial hemorrhage seen. No mass effect, midline shift, or hydrocephalus. No skull fracture seen. Visualized paranasal sinuses are clear. No mastoid effusion. IMPRESSION: No acute findings seen. Otherwise as described. ACT 112: Negative or not required by law. The above report was generated using voice recognition software. It may contain grammatical, syntax o r spelling errors. Electronically signed by: Caleb Rothman M.D. 02/08/2025 2:38 PM
[2025-02-08] MEDS: ACETAMINOPHEN 1000 MG/100 ML IV IV ONE (14:49)
[2025-02-08] MEDS: FAMOTIDINE 20MG/5ML IV PUSH IV ONE (14:49)
--- NOTE | 2025-02-08 15:13 | Emergency Department Note ---
Impression & Plan Generalized weakness, Hyponatremia, Hypokalemia, COVID-19 ED Provider Note ED Provider Note NAME: HERBIE SALVADOR AGE:74 SEX: Female : 1950 ARRIVES VIA: private vehicle INFORMANT: Patient ED PROVIDER(s): Hanny Matamoros DO CHIEF COMPLAINT: weakness, "flu" for 1 week HPI: This is a 74-year-old female who presents to the emergency department due to concern for flulike symptoms over the course the last week. Patient states symptoms began last Wednesday after she had help with the voiding process on election . She states she initially started with cough, rhinorrhea, sore throat, and chills. She began then developing body aches. She states the cough was productive of white and intermittently green sputum. She denies hemoptysis. She denies any chest pain or sense of difficulty breathing. She states she had a decreased appetite, body aches, generalized weakness. She states yesterday she began developing vomiting and diarrhea. She contacted her daughter today who was concerned due to a prolonged illness and now for accompanying dehydration and recommended she come in for additional evaluation. Patient seen during EMR downtime. PAST MEDICAL HISTORY:See Below PAST SURGICAL HISTORY:See Below FAMILY HISTORY:See Below SOCIAL HISTORY:See Below HOME MEDICATIONS:See Below ALLERGIES:See Below VITALS:See Below PHYSICAL EXAMINATION: GENERAL: alert, well appearing, well nourished, no distress, non-toxic EYE EXAM: normal conjunctiva, PERRL and EOM's grossly intact OROPHARYNX: no exudate, no erythema, lips, buccal mucosa, and tongue normal and mucous membranes are dry NECK: supple, no nuchal rigidity, no adenopathy, non-tender LUNGS: Clear to auscultation. Normal chest wall mechanics, no w/r/r HEART: no murmurs, S1 normal and S2 normal ABDOMEN: abdomen soft, non-tender, normo-active bowel sounds, no masses, no rebound or guarding. BACK: Back is symmetrical on inspection and there is no deformity, no midline tenderness, no CVA tenderness. SKIN: no rashes, petechiae, orbruising UPPER EXTREMITIES: upper extremities are grossly normal. FROM, nml pulses b/l. LOWER EXTREMITIES: No pitting edema. FROM, nml pulses b/l. NEURO EXAM: Normal sensorium, cranial nerves II-XII grossly intact, normal speech, no facial droop,nogross weakness of arms, no gross weakness of legs. Gross sensation intact. No ataxia. Vital Signs: reviewed and remarkable Differential Diagnosis: Viral syndrome dehydration, pneumonia, BIRDIE, electrolyte abnormality, medication ADR, gastritis, cholecystitis, pancreatitis, ACS, bacteremia/sepsis, as well as others are considered MEDICAL DECISION MAKING: This is a 74-year-old female who presents the emergency department due to 1 week of flulike symptoms now with accompanying vomiting/diarrhea. Labs drawn and sent, IV established, EKG and CXR performed and interpreted at bedside, and patient placed on telemetry. Patient started on IV fluids and given IV Tylenol, IV pepcid, IV protonix. Labs have been started prior to her being placed on a room and my evaluation. Her chemistry panel revealed a significant hyponatremia of 117 as well as hypokalemia. Her fluids were immediately decreased to a maintenance rate. She does appear dehydrated. She was sent for additional CT head. Patient found to be positive for COVID. No evidence of focal infiltrate on chest x-ray. Patient and daughter updated on results and need for further inpatient evaluation and management. Case discussed with the hospitalist team. Patient was given a dose of oral potassium to aid in repletion as well. Consultation(s): 1511: Discussed with Bessy Leach hospitalist team, for further evaluation and mgmt. ER Treatment Provided: See below Diagnostics Interpreted By Me: -ECG: not available during downtime, paper copy not found -Cardiac Monitoring: An order was placed for continuous cardiac monitoring. The monitor shows a rate of 78 with normal sinus rhythm. -Laboratory studies: As stated above and show below. -Imaging studies: X-ray Chest: A single view study of the chest was reviewed and was negative for cardiomegaly, focal infiltrate, effusion, pulmonary edema, or wide mediastinum. Triage Nursing Note Reviewed Prior/Outside Records Reviewed Critical care: Critical care of 42 min performed to assess and manage high likelihood of life- threatening hyponatremia, involving labs and imaging performed with assessment to evaluate hyponatremia diagnosis with frequent reassessment. This time includes bedside time, treatment discussions with patient/family/consultants, documentation time and excludes procedure time. Past Med/Surg History Problem List COVID-19 (Acute) Hypokalemia (Acute) Hyponatremia (Acute) Generalized weakness (Acute) Idiopathic polyneuropathy Lumbosacral radiculopathy History of peptic ulcer Anxiety disorder (Chronic) Hypothyroidism (Chronic) Hypertension (Chronic) Dyslipidemia (Chronic) CKD (chronic kidney disease) stage 3, GFR 30-59 ml/min (Chronic) Acid reflux (Acute) Eosinophilic esophagitis Ulcerative pancolitis Abnormal CT scan RLQ abdominal tenderness Mucocele, appendix Rectal bleeding Medical History Hypothyroidism Hyperlipidemia NO MEDS Hypertension CKD (chronic kidney disease) pt denies Anxiety Internal hemorrhoids Ischemic colitis hx Multiple thyroid nodules HASN'T HAD CHECKED IN APPROX 6 YRS History of kidney stones PASSED ON OWN GERD (gastroesophageal reflux disease) Surgical History Hx of bilateral cataract extraction History of total abdominal hysterectomy and bilateral salpingo-oophorectomy History of colonoscopy with polypectomy History of esophagogastroduodenoscopy (EGD) History of cholecystectomy History of tooth extraction History of cardiac cath x2--09/2015 and 04/26/2019 @ [facility] no stents-both done "pain in her left side, wasn't able to complete the stress tests; no cardio. History of tonsillectomy and adenoidectomy Family History Mother Family history of diabetes mellitus Father Family hx colonic polyps Other No family history of adverse response to anesthesia Social History Smoking Status: Never smoker Second Hand Exposure: Yes (hx); Do You Dip or Chew Tobacco: No; Hx Alcohol Use: No Hx Substance Use: No Preferred Language: Polish Communication Ability: Effective [employer] Required: No Beliefs That Will Affect Care: None marital status: Current Living Situation: Alone How many Children do You have: 2 Feels Safe at Home: Yes Assistive Devices: None and Cane Allergies Allergies Allergy/AdvReac Type Severity Reaction Status Date / Time clindamycin Allergy Intermediate "MAKES MY Verified 01/18/25 09:05 COLITIS BLEED" pneumococcal vaccine Allergy Intermediate Hives Verified 01/18/25 09:05 amoxicillin Allergy Mild RASH Verified 01/18/25 09:05 citalopram Allergy Mild SICK Verified 01/18/25 09:05 clavulanic acid Allergy Mild RASH Verified 01/18/25 09:05 latex Allergy Mild RASH Verified 01/18/25 09:05 oxycodone Allergy Mild RASH, SICK Verified 01/18/25 09:05 TO STOMACH iodine Allergy Unknown Hives Verified 01/18/25 09:05 Home Meds Home Medications Medication Instructions Recorded Confirmed infliximab 100 mg intravenous 100 mg IV Q8WK 01/31/19 02/08/25 solution (Remicade) amlodipine 5 mg tablet (Norvasc) 5 mg PO QAM 05/01/19 02/08/25 buspirone 10 mg tablet 10 mg PO BID 05/01/19 02/08/25 cholecalciferol (vitamin D3) 25 1,000 units PO QAM 05/01/19 02/08/25 mcg (1,000 unit) capsule (Vitamin D3) clotrimazole-betamethasone 1 1 appln topical BID PRN Rash 05/01/19 02/08/25 %-0.05 % topical cream hydrochlorothiazide 25 mg tablet 25 mg PO QAM 05/01/19 02/08/25 levothyroxine 100 mcg capsule 100 mcg PO QAM 05/01/19 02/08/25 potassium chloride 20 mEq 20 meq PO QPM 05/01/19 02/08/25 tablet,extended release cyanocobalamin (vitamin B-12) 1,000 mcg PO QAM 12/15/22 02/08/25 1,000 mcg tablet (Vitamin B-12) Previous Rx's Medication Instructions Recorded pantoprazole 40 mg tablet,delayed 40 mg PO BID #60 tabs 09/25/20 release Results & Data (ED) Vital Signs Vital Signs - 24 hr 02/08/25 10:03 02/08/25 15:00 02/08/25 15:55 Temperature 36.3 C L Temperature Source Temporal Artery Scan Pulse Rate 76 Pulse Rate [Right Finger] 79 Pulse Rate from SpO2 Sensor Respiratory Rate 18 20 Respiratory Effort / Characteristics Non-Labored Spontaneous Respiratory Depth Normal Blood Pressure 164/91 H 185/97 H Blood Pressure [Left Arm] 129/101 H Blood Pressure Mean 115 128 Blood Pressure Mean [Left Arm] 110 Blood Pressure Position Sitting Pulse Oximetry 97 Oxygen Delivery Method Room Air Room Air Sepsis Recent Fever Within 48 Hours No Sepsis New/Unexplained Change in Mental Status No Sepsis Action Taken by Nursing No Action Required 02/08/25 15:56 02/08/25 15:56 02/08/25 15:56 Temperature Temperature Source Pulse Rate 76 Pulse Rate [Right Finger] Pulse Rate from SpO2 Sensor Respiratory Rate Respiratory Effort / Characteristics Respiratory Depth Blood Pressure 183/98 H 183/98 H Blood Pressure [Left Arm] Blood Pressure Mean 127 127 Blood Pressure Mean [Left Arm] Blood Pressure Position Pulse Oximetry Oxygen Delivery Method Sepsis Recent Fever Within 48 Hours Sepsis New/Unexplained Change in Mental Status Sepsis Action Taken by Nursing 02/08/25 15:56 02/08/25 15:56 02/08/25 15:56 Temperature Temperature Source Pulse Rate Pulse Rate [Right Finger] Pulse Rate from SpO2 Sensor Respiratory Rate Respiratory Effort / Characteristics Respiratory Depth Blood Pressure 183/98 H 183/98 H 183/98 H Blood Pressure [Left Arm] Blood Pressure Mean 127 127 127 Blood Pressure Mean [Left Arm] Blood Pressure Position Pulse Oximetry Oxygen Delivery Method Sepsis Recent Fever Within 48 Hours Sepsis New/Unexplained Change in Mental Status Sepsis Action Taken by Nursing 02/08/25 15:57 02/08/25 16:00 02/08/25 16:00 Temperature Temperature Source Pulse Rate 74 72 Pulse Rate [Right Finger] Pulse Rate from SpO2 Sensor 76 72 Respiratory Rate 19 16 Respiratory Effort / Characteristics Respiratory Depth Blood Pressure 182/109 H Blood Pressure [Left Arm] Blood Pressure Mean 151 Blood Pressure Mean [Left Arm] Blood Pressure Position Pulse Oximetry 97 98 Oxygen Delivery Method Sepsis Recent Fever Within 48 Hours Sepsis New/Unexplained Change in Mental Status Sepsis Action Taken by Nursing 02/08/25 16:00 02/08/25 16:00 02/08/25 16:00 Temperature Temperature Source Pulse Rate Pulse Rate [Right Finger] Pulse Rate from SpO2 Sensor Respiratory Rate Respiratory Effort / Characteristics Respiratory Depth Blood Pressure 182/109 H 182/109 H 182/109 H Blood Pressure [Left Arm] Blood Pressure Mean 151 151 151 Blood Pressure Mean [Left Arm] Blood Pressure Position Pulse Oximetry Oxygen Delivery Method Sepsis Recent Fever Within 48 Hours Sepsis New/Unexplained Change in Mental Status Sepsis Action Taken by Nursing 02/08/25 16:00 Temperature Temperature Source Pulse Rate Pulse Rate [Right Finger] Pulse Rate from SpO2 Sensor Respiratory Rate Respiratory Effort / Characteristics Respiratory Depth Blood Pressure 182/109 H Blood Pressure [Left Arm] Blood Pressure Mean 151 Blood Pressure Mean [Left Arm] Blood Pressure Position Pulse Oximetry Oxygen Delivery Method Sepsis Recent Fever Within 48 Hours Sepsis New/Unexplained Change in Mental Status Sepsis Action Taken by Nursing Laboratory Data 02/09/25 04:32 02/09/25 12:21 Lab Results 02/08/25 02/08/25 Range/Units 10:06 10:27 WBC 2.23 L (4.8-10.8) K/ul RBC 5.13 (4.20-5.40) M/uL Hgb 15.3 (12.0-16.0) g/dL Hct 40.7 (37.0-47.0) % MCV 79.3 L (80.0-100.0) fL MCH 29.8 (25.0-34.0) pg MCHC 37.6 H (32.0-36.0) g/dL RDW Std Deviation 33.4 L (36.4-46.3) fL RDW Coeff of Christina 11.6 (11.5-14.5) % Plt Count 235 (130-400) K/uL MPV 9.2 L (9.4-12.4) fL Immature Gran % (Auto) 0.0 % Neut % (Auto) 47.9 % Lymph % (Auto) 40.4 % [place] % (Auto) 11.7 % Eos % (Auto) 0.0 % Baso % (Auto) 0.0 % Neut # (Auto) 1.07 L (1.40-6.50) K/uL Lymph # (Auto) 0.90 L (1.20-3.40) K/uL [place] # (Auto) 0.26 (0.11-0.59) K/uL Eos # (Auto) 0.00 (0.00-0.50) K/uL Baso # (Auto) 0.00 (0.00-0.20) K/uL Immature Gran # (Auto) 0.00 L (0.01-0.20) K/uL Polychromasia 1+ Sodium 117 L* (136-145) mmol/L Potassium 2.7 L (3.5-5.1) mmol/L Chloride 78 L (98-107) mmol/L Carbon Dioxide 27 (21-32) mmol/L Anion Gap 12 H (3-11) BUN 7 (6-23) mg/dl Creatinine 0.59 L (0.6-1.2) mg/dl Est Cr Clr Drug Dosing Not Reportable eGFR 94.51 BUN/Creatinine Ratio 11.9 (10-20) Glucose 147 H (70-99(Fasting)) mg/dl Osmolality Cancelled Calcium 9.2 (8.6-10.3) mg/dl Total Bilirubin 1.0 (0.2-1.0) mg/dl AST 36 (13-39) U/L ALT 26 (7-52) U/L Alkaline Phosphatase 63 (34-104) U/L Troponin I High Sens 9.1 (0-14) pg/ml Total Protein 7.3 (6.0-8.3) gm/dl Albumin 4.3 (3.4-5.0) gm/dl Globulin 3.0 (2.5-4.0) gm/dl Albumin/Globulin Ratio 1.4 (0.9-2) SARS-CoV-2 (PCR) POSITIVE A (Negative) Influenza Type A (PCR) Negative (Neg) Influenza Type B (PCR) Negative (Neg) RSV (RT-PCR) Negative (Neg) Administered Medications Amlodipine Besylate (Amlodipine Besylate 5 Mg Tab) 5 mg PO QAM BRITTANY Stop: 03/11/25 11:14 Last Admin: 02/09/25 11:34 Dose: 5 mg Documented By: OS Heparin Sodium (Porcine) (Heparin Sod 5,000 Unit/0.5 Ml Vial) 5,000 units SQ Q12 BRITTANY Stop: 03/10/25 20:59 Last Admin: 02/09/25 07:57 Dose: 5,000 units Documented By: Admin: 02/08/25 20:07 Dose: 5,000 units Documented By: KDL Acetaminophen (Ofirmev) 1,000 mg in 100 mls @ 400 mls/hr IV Q8H PRN PRN Reason: Mild Pain (Scale 1, 2, 3) Stop: 02/11/25 18:25 Last Infusion: 02/09/25 14:49 Dose: Infused Documented By: Admin: 02/09/25 14:29 Dose: 400 mls/hr Documented By: Infusion: 02/08/25 19:35 Dose: Infused Documented By: Admin: 02/08/25 18:47 Dose: 400 mls/hr Documented By: OS Miscellaneous (Remove Lidoderm Patch) 1 each N/A DAILY@2100 [facility] Stop: 03/10/25 20:59 Last Admin: 02/08/25 20:07 Dose: 1 each Documented By: RAFAEL Ondansetron HCl (Ondansetron Inj 2 Mg/Ml 2 Ml Vial) 4 mg IV Q6H PRN PRN Reason: Nausea Stop: 03/10/25 18:25 Last Admin: 02/08/25 22:39 Dose: 4 mg Documented By: RAFAEL Potassium Chloride (Potassium Chloride Crtab 20 Meq Tabcr) 40 meq PO BID BRITTANY Stop: 03/11/25 08:59 Last Admin: 02/09/25 08:37 Dose: 40 meq Documented By: OS Discontinued Medications Acetaminophen (Acetaminophen 1000 Mg/100 Ml Iv) Confirm Administered Dose 1,000 mg IV .STK-MED ONE Stop: 02/08/25 13:34 Last Admin: 02/08/25 14:49 Dose: Not Given Documented By: alfredo Acetaminophen/Butalbital/Caffeine (Butalbital/Acetamin/Caffeine Tab) 1 tab PO NOW STA Stop: 02/08/25 16:55 Last Admin: 02/08/25 17:16 Dose: 1 tab Documented By: alfredo Famotidine (Famotidine 20mg/5ml Iv Push) Confirm Administered Dose 20 mg IV .STK-MED ONE Stop: 02/08/25 13:34 Last Admin: 02/08/25 14:49 Dose: Not Given Documented By: alfredo Potassium Chloride (K Rodrigo / Wtr) 10 meq in 100 mls @ 100 mls/hr IV Q1H BRITTANY Stop: 02/08/25 20:14 Last Infusion: 02/08/25 22:04 Dose: Infused Documented By: Admin: 02/08/25 20:38 Dose: 100 mls/hr Documented By: Infusion: 02/08/25 20:38 Dose: Infused Documented By: Admin: 02/08/25 19:52 Dose: 100 mls/hr Documented By: Infusion: 02/08/25 19:41 Dose: Infused Documented By: Admin: 02/08/25 18:41 Dose: 100 mls/hr Documented By: Infusion: 02/08/25 17:33 Dose: Infused Documented By: Admin: 02/08/25 16:33 Dose: 100 mls/hr Documented By: alfredo Pantoprazole Sodium (Protonix) 40 mg in 10 mls @ 5 mls/min IV BID BRITTANY Stop: 03/10/25 20:59 Last Admin: 02/09/25 07:57 Dose: 5 mls/min Documented By: Admin: 02/08/25 20:07 Dose: 5 mls/min Documented By: RAFAEL Sodium Chloride (Nss) 1,000 mls @ 150 mls/hr IV .Q6H40M BRITTANY Stop: 02/11/25 19:29 Last Infusion: 02/09/25 01:46 Dose: Infused Documented By: Infusion: 02/08/25 22:51 Dose: 0 mls/hr Documented By: Admin: 02/08/25 19:41 Dose: 150 mls/hr Documented By: RAFAEL Potassium Chloride (K Rodrigo / Wtr) 10 meq in 100 mls @ 100 mls/hr IV Q1H BRITTANY Stop: 02/08/25 22:59 Last Infusion: 02/08/25 23:32 Dose: Infused Documented By: Admin: 02/08/25 23:02 Dose: 100 mls/hr Documented By: KDAnnika Infusion: 02/08/25 22:54 Dose: Infused Documented By: Admin: 02/08/25 21:54 Dose: 100 mls/hr Documented By: RAFAEL Magnesium Sulfate/Dextrose (Magnesium Sulfate / D5w) 1 gm in 100 mls @ 50 mls/hr IV Q2H BRITTANY Stop: 02/09/25 03:29 Last Infusion: 02/09/25 04:07 Dose: Infused Documented By: Admin: 02/09/25 01:42 Dose: 50 mls/hr Documented By: Infusion: 02/09/25 01:42 Dose: Infused Documented By: Admin: 02/08/25 23:42 Dose: 50 mls/hr Documented By: KDAnnika Dextrose (D5w) 500 mls @ 80 mls/hr IV .Q6H15M ONE Stop: 02/09/25 07:59 Last Infusion: 02/09/25 08:04 Dose: Infused Documented By: Infusion: 02/09/25 05:23 Dose: 80 mls/hr Documented By: Admin: 02/09/25 01:53 Dose: 50 mls/hr Documented By: RAFAEL Ketorolac Tromethamine (Ketorolac Tromethamine 15 Mg/Ml Vial) 10 mg IV NOW ONE Stop: 02/08/25 15:00 Last Admin: 02/08/25 15:30 Dose: 10 mg Documented By: alfredo Ketorolac Tromethamine (Ketorolac Tromethamine 15 Mg/Ml Vial) 10 mg IV NOW ONE Stop: 02/08/25 20:48 Last Admin: 02/08/25 20:59 Dose: 10 mg Documented By: RAFAEL Lidocaine (Lidocaine 5% 1 Patch) 1 patch TD NOW STA Stop: 02/08/25 16:08 Last Admin: 02/08/25 16:33 Dose: 1 patch Documented By: alfredo Miscellaneous (Patient's Height &/Or Weight Needed) 1 each N/A Q2H STA Stop: 02/08/25 17:04 Last Admin: 02/08/25 19:23 Dose: 1 each Documented By: RAFAEL Ondansetron HCl (Ondansetron Inj 2 Mg/Ml 2 Ml Vial) 4 mg IV NOW STA Stop: 02/08/25 16:07 Last Admin: 02/08/25 16:33 Dose: 4 mg Documented By: alfredo Potassium Chloride (Potassium Chloride Crtab 20 Meq Tabcr) 40 meq PO NOW STA Stop: 02/08/25 15:02 Last Admin: 02/08/25 15:30 Dose: 40 meq Documented By: alfredo Potassium Chloride (Potassium Chloride Pwd 20 Meq Pack) 40 meq PO NOW STA Stop: 02/09/25 01:33 Last Admin: 02/09/25 01:53 Dose: 40 meq Documented By: RAFAEL Potassium Chloride (Potassium Chloride Crtab 20 Meq Tabcr) 40 meq PO NOW STA Stop: 02/09/25 05:15 Last Admin: 02/09/25 05:27 Dose: 40 meq Documented By: RAFAEL Potassium Chloride (Potassium Chloride Crtab 20 Meq Tabcr) 40 meq PO ONE ONE Stop: 02/09/25 07:31 Last Admin: 02/09/25 07:56 Dose: 40 meq Documented By: OS Imaging Data Radiologist's Impression: Chest X-Ray 02/08/25 00:00 Clinical History: Cough Technique: A frontal view of the chest was obtained Findings: There are no confluent pulmonary infiltrates. The heart size is within normal limits. No pleural effusion or pneumothorax is seen. There is no definite pulmonary nodule. No fracture is noted. No foreign body is seen Impression: No active disease Electronically signed by Jerson Tse 02-08-2025 6:[address] 02/08/25 14:27 CT head/brain wo con CLINICAL HISTORY: COUGH, COVID. TECHNIQUE: Multiple axial CT images of the head were obtained without contrast. A dose lowering technique was utilized adhering to the principles of ALARA. CT DOSE: 625.8 mGy.cm COMPARISON: None FINDINGS: There is moderate diffuse patchy periventricular hypodensity. This is nonspecific, but usually represents chronic small vessel ischemic change. No intracranial hemorrhage seen. No mass effect, midline shift, or hydrocephalus. No skull fracture seen. Visualized paranasal sinuses are clear. No mastoid effusion. IMPRESSION: No acute findings seen. Otherwise as described. ACT 112: Negative or not required by law. The above report was generated using voice recognition software. It may contain grammatical, syntax or spelling errors. Electronically signed by: Caleb Rothman M.D. 02/08/2025 2:38 PM Discharge Plan Visit Data Chief Complaint: Flu Like Symptoms Stated Complaint: FLU LIKE SX ED Provider: Hanny Matamoros Discharge Problem: Generalized weakness, Hyponatremia, Hypokalemia, COVID-19 Patient Disposition: Admitted As Inpatient Condition: Fair Discharge Instructions Interventions: ED Discharge Assessment Last Done: 02/08/25 19:00
--- NOTE | 2025-02-08 15:21 | History & Physical Report ---
Date of Service February 08, 2025 Assessment & Plan (1) Hyponatremia: (2) Hypokalemia: (3) COVID-19: (4) Hypertension: (5) Dyslipidemia: (6) Hypothyroidism: (7) GERD (gastroesophageal reflux disease): (8) Anxiety disorder: Plan 74 year old female with PMH significant for hyperlipidemia, hypothyroidism, prediabetes, hypertension, GERD, ulcerative enterocolitis, primary parkinsonism, and anxiety who presents to the ED on 02/08/2025 with illness and was found to have hyponatremia and hypokalemia secondary to dehydration likely from COVID. Hyponatremia Sodium 117 on arrival (1030) Likely secondary to dehydration in setting of vomiting and diarrhea with viral illness Serum osmolality, urine osmolality, urine lytes pending Recheck BMP now and q4hr Received NSS in the ED-> holding until repeat labs result Nephrology consult for fluid correction Hypokalemia K 2.7 on arrival Replete 40meq IV ordered Recheck BMP now and q4hr COVID Symptom onset 7 days ago CXR pending On RA and vitals stable Supportive care PT/OT when more stable Vomiting and diarrhea Started overnight Likely secondary to viral illness Obtain stool PCR Antiemetics PRN Fluids as determined by Nephrology in setting of hyponatremia NPO for now Hyperglycemia Prediabetes Glucose 147 Obtain A1C in am Hypertension Hold HCTZ in setting of hyponatremia and dehydration Resume amlodipine when able to tolerate PO Hypothyroidism Resume levothyroxine when able to tolerate PO GERD IV protonix for now Anxiety Resume buspirone when able to tolerate PO DVT Prophylaxis: SQ Heparin Code Status: FULL CODE - As per discussion at bedside with the patient. PCP: Ad Sutton Disposition: admit to PCU Patient seen in collaboration with Dr. Smith. Please see addendum. I spent a total of 70 minutes coordinating, documenting and providing care for this patient excluding time spent in the performance of separately billed services or time spent by another provider/QHP. Admission and Anticipated Discharge Date Admission Date: February 08, 2025 History of Present Illness Chief Complaint: illness Primary Care Provider: Ad Sutton MD 74 year old female with PMH significant for hyperlipidemia, hypothyroidism, prediabetes, hypertension, GERD, ulcerative enterocolitis, primary parkinsonism, and anxiety who presents to the ED on 02/08/2025 with illness. 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 This progressed to a productive cough, headache, congestion, poor appetite. Then last night she developed vomiting and diarrhea where she notes 15-20 episodes of nonbloody vomiting and diarrhea. This prompted her to be evaluated in the ED today. Currently feels very weak and fatigued, is nauseous and actively vomiting in the ED, complaining of generalized abdominal pain, headache and back pain. Had a recent epidural spinal injection with pain management for chronic back pain. She denies fevers, chest pain and SOB. Allergies Allergy/AdvReac Type Severity Reaction Status Date / Time clindamycin Allergy Intermediate "MAKES MY Verified 01/18/25 09:05 COLITIS BLEED" pneumococcal vaccine Allergy Intermediate Hives Verified 01/18/25 09:05 amoxicillin Allergy Mild RASH Verified 01/18/25 09:05 citalopram Allergy Mild SICK Verified 01/18/25 09:05 clavulanic acid Allergy Mild RASH Verified 01/18/25 09:05 latex Allergy Mild RASH Verified 01/18/25 09:05 oxycodone Allergy Mild RASH, SICK Verified 01/18/25 09:05 TO STOMACH iodine Allergy Unknown Hives Verified 01/18/25 09:05 Home Medications Medication Instructions Recorded Confirmed Type infliximab 100 mg intravenous 100 mg IV [id number] 01/31/19 02/08/25 History solution (Remicade) amlodipine 5 mg tablet (Norvasc) 5 mg PO QAM 05/01/19 02/08/25 History buspirone 10 mg tablet 10 mg PO BID 05/01/19 02/08/25 History cholecalciferol (vitamin D3) 25 1,000 units PO QAM 05/01/19 02/08/25 History mcg (1,000 unit) capsule (Vitamin D3) clotrimazole-betamethasone 1 1 appln topical BID PRN Rash 05/01/19 02/08/25 History %-0.05 % topical cream hydrochlorothiazide 25 mg tablet 25 mg PO QAM 05/01/19 02/08/25 History levothyroxine 100 mcg capsule 100 mcg PO QAM 05/01/19 02/08/25 History potassium chloride 20 mEq 20 meq PO QPM 05/01/19 02/08/25 History tablet,extended release pantoprazole 40 mg tablet,delayed 40 mg PO BID #60 tabs 09/25/20 02/08/25 Rx release cyanocobalamin (vitamin B-12) 1,000 mcg PO QAM 12/15/22 02/08/25 History 1,000 mcg tablet (Vitamin B-12) Past Med/Surg History Problem List COVID-19 (Acute) Hypokalemia (Acute) Hyponatremia (Acute) Generalized weakness (Acute) Idiopathic polyneuropathy Lumbosacral radiculopathy History of peptic ulcer Anxiety disorder (Chronic) Hypothyroidism (Chronic) Hypertension (Chronic) Dyslipidemia (Chronic) CKD (chronic kidney disease) stage 3, GFR 30-59 ml/min (Chronic) Acid reflux (Acute) Eosinophilic esophagitis Ulcerative pancolitis Abnormal CT scan RLQ abdominal tenderness Mucocele, appendix Rectal bleeding Medical History Hypothyroidism Hyperlipidemia NO MEDS Hypertension CKD (chronic kidney disease) pt denies Anxiety Internal hemorrhoids Ischemic colitis hx Multiple thyroid nodules HASN'T HAD CHECKED IN APPROX 6 YRS History of kidney stones PASSED ON OWN GERD (gastroesophageal reflux disease) Surgical History Hx of bilateral cataract extraction History of total abdominal hysterectomy and bilateral salpingo-oophorectomy History of colonoscopy with polypectomy History of esophagogastroduodenoscopy (EGD) History of cholecystectomy History of tooth extraction History of cardiac cath x2--09/2015 and 04/26/2019 @ [facility] no stents-both done "pain in her left side, wasn't able to complete the stress tests; no cardio. History of tonsillectomy and adenoidectomy Family History Mother Family history of diabetes mellitus Father Family hx colonic polyps Other No family history of adverse response to anesthesia Social History Smoking Status: Never smoker Second Hand Exposure: Yes (hx); Do You Dip or Chew Tobacco: No; Hx Alcohol Use: No Hx Substance Use: No Preferred Language: Czech Communication Ability: Effective Events Assistant Required: No Beliefs That Will Affect Care: None marital status: Current Living Situation: Alone How many Children do You have: 2 Feels Safe at Home: Yes Assistive Devices: None Review of Systems Review of Systems: All systems reviewed & are unremarkable except as noted in HPI & below Physical Exam Physical Exam: General/Psych: ill appearing, flushed, sitting up in bed, NAD Head: normocephalic, atraumatic Eyes: normal inspection, PERRL, conjunctivae pink ENT: external ear and nose normal, oropharynx normal, dry mucosa Neck: normal visual inspection, trachea midline Respiratory: normal respiratory effort, lungs clear to auscultation, no wheeze/rales/rhonchi, no accessory muscle use Cardiovascular: regular rate and rhythm, no murmur/rub/gallop Extremities: no cyanosis or clubbing, normal peripheral pulses, no BLE edema Abdomen/GI: normal bowel sounds, soft, slightly tender on palpation of all quadrants Neurologic/MSK: A+Ox3, motor strength 5/5, moves all extremities Skin: no rashes, normal color, warm and dry Results & Data Results & Data Vital Signs (Past 12 Hours) Vital Signs Temp Pulse Resp BP O2 Del Method 02/08/25 10:03 36.3 C L 76 18 164/91 H Room Air Laboratory Results Short CBC 02/08/25 Range/Units 10:27 WBC 2.23 L (4.8-10.8) K/ul Hgb 15.3 (12.0-16.0) g/dL Hct 40.7 (37.0-47.0) % Plt Count 235 (130-400) K/uL BMP 02/08/25 10:27 Sodium 117 L* Potassium 2.7 L Chloride 78 L Carbon Dioxide 27 BUN 7 Creatinine 0.59 L Glucose 147 H Calcium 9.2 Liver Function 02/08/25 Range/Units 10:27 Total Bilirubin 1.0 (0.2-1.0) mg/dl AST 36 (13-39) U/L ALT 26 (7-52) U/L Alkaline Phosphatase 63 (34-104) U/L Albumin 4.3 (3.4-5.0) gm/dl I have independently reviewed and interpreted patient's admitting labs including CBC, CMP, troponin. Diagnostic Findings Head CT 11/13/25 14:27 CT head/brain wo con CLINICAL HISTORY: COUGH, COVID. TECHNIQUE: Multiple axial CT images of the head were obtained without contrast. A dose lowering technique was utilized adhering to the principles of ALARA. CT DOSE: 625.8 mGy.cm COMPARISON: None FINDINGS: There is moderate diffuse patchy periventricular hypodensity. This is nonspecific, but usually represents chronic small vessel ischemic change. No intracranial hemorrhage seen. No mass effect, midline shift, or hydrocephalus. No skull fracture seen. Visualized paranasal sinuses are clear. No mastoid effusion. IMPRESSION: No acute findings seen. Otherwise as described. ACT 112: Negative or not required by law. The above report was generated using voice recognition software. It may contain grammatical, syntax or spelling errors. Electronically signed by: Caleb Rothman M.D. 02/08/2025 2:38 PM Code Status & VTE Plan Code Status Full Code Supervising Physician Co-Signing Physician Notes 74-year-old with PMH of goiter, HLD, prediabetes, HTN, GERD, ulcerative colitis, primary parkinsonism presents to the ED with complaint of multiple episodes of vomiting and diarrhea since last evening. Patient reports getting cough and cold since about 7 days ago, has been having poor appetite/progressively weak/lightheadedness/headache since about the same time. Patient's daughter Reyna was at bedside who was also updated on plan of care. Outpatient chart reviewed with sodium level in the low to mid 130s. On labs reviewed, leukopenia noted [likely in the setting of COVID URTI], sodium 117, potassium 2.7, chloride 78. LFT and calcium level WNL. COVID positive. She is here with no acute findings. Hyponatremia: Send urine Na, osm and serum Osm / na. Repeat BMP at q4h for now. nephrology consult, use of IV fluid with their recommendation. Nephro aware, would want repeat BMP for ivf recommendation. Hold home hydrochlorothiazide and buspirone. Hypokalemia: Potassium of 2.7 at presentation, patient received 40 mEq at ED which she apparently vomitted. Give additional 80 mEq. will start w/ 40 meq iv and additional 40 meq in ivf when ivf is determined w/ nephro assistance. f/u BMP q4h COVID-19 infection: Diagnosed 7 days ago, on room air, continue supportive care. Follow-up chest x-ray. On exam: GENERAL: Alert and oriented x3. on RA. lethargic, tired, appears ill. HEENT: No pallor, no icterus. Pupils equal, round and reactive to light. Oral mucosa dry. NECK: No JVD, no neck masses. HEART: S1 and S2 heard. Regular rate and rhythm. No murmur, no gallop. RESPIRATORY SYSTEM: Normal AP diameter. No accessory muscle use. No wheezing, no crackles. ABDOMEN: Soft, bowel sounds present, nontender, no distention. CENTRAL NERVOUS SYSTEM: No facial droop. Speech is clear. Obeys simple commands. Moves extremities. EXTREMITIES: No edema, no erythema seen. Total time spent independently: 28 minutes. I have seen and examined the patient and have discussed the case with the provider above. I agree with the assessment and plan as stated.
[2025-02-08] MEDS: KETOROLAC TROMETHAMINE 15 MG/ML VIAL IV ONE ×2 (15:30→20:59)
[2025-02-08] MEDS: POTASSIUM CHLORIDE CRTAB 20 MEQ TABCR PO STA (15:30)
[2025-02-08] MEDS: LIDOCAINE 5% 1 PATCH TD STA (16:33)
[2025-02-08] MEDS: POTASSIUM CHLORIDE / WTR 10 MEQ/100 ML PLCT IV SCH ×2 (16:33→21:54)
[2025-02-08] MEDS: ONDANSETRON INJ 2 MG/ML 2 ML VIAL IV STA (16:33)
[2025-02-08] MEDS: BUTALBITAL/ACETAMIN/CAFFEINE TAB PO STA (17:16)
[2025-02-08 17:20] LABS: Appearance Urine Clear (Clear); Bacteria Urine Automated None Seen (None Seen); Cast Urine Automated 0-2 /lpf (0-2); Epithelial Cell Urine Auto 0-2 /hpf (0-2); Glucose Urine UA Negative (Negative); RBC Urine Automated 0-2 /hpf (0-2)
[2025-02-08 17:39] LABS: Anion Gap 11.0 (3-11); Blood Urea Nitrogen 6.0 mg/dl (6-23); Calcium 8.5 mg/dl (8.6-10.3); Carbon Dioxide 24.0 mmol/L (21-32); Chloride 82.0 mmol/L (98-107); Creatinine Clr Calc Pharmacy 101.0 ml/min; Glucose 129.0 mg/dl (70-99(Fasting)); Potassium 2.6 mmol/L (3.5-5.1); Sodium 117.0 mmol/L (136-145)
[2025-02-08 18:05] LABS: Chlamydia pneumoniae PCR Not Detected (NotDetected); Coronavirus 229E PCR Not Detected (NotDetected); Coronavirus CoV-2 (COVID19)PCR DETECTED (NotDetected); Coronavirus HKU1 PCR Not Detected (NotDetected); Coronavirus NL63 PCR Not Detected (NotDetected); Coronavirus OC43PCR Not Detected (NotDetected); Human Metapneumovirus PCR Not Detected (NotDetected); Parainfluenza Virus 1 PCR Not Detected (NotDetected); Parainfluenza Virus 2 PCR Not Detected (NotDetected); Parainfluenza Virus 3 PCR Not Detected (NotDetected); Parainfluenza Virus 4 PCR Not Detected (NotDetected); Respiratory Syncytial VirusPCR Not Detected (NotDetected); Rhinovirus/Enterovirus PCR Not Detected (NotDetected)
--- NOTE | 2025-02-08 18:09 | XRay Report ---
Clinical History: Cough Technique: A frontal view of the chest was obtained Findings: There are no confluent pulmonary infiltrates. The heart size is within normal limits. No pleural effusion or pneumothorax is seen. There is no definite pulmonary nodule. No fracture is noted. No foreign body is seen Impression: No active disease Electronically signed by Jerson Tse 02-08-2025 6:09 PM
[2025-02-08] MEDS: ACETAMINOPHEN 1,000 MG/100 ML VIAL IV PRN (18:47)
[2025-02-08] MEDS: Patient's HEIGHT &/or WEIGHT Needed STA (19:23)
[2025-02-08] MEDS: SODIUM CHLORIDE 0.9% 1,000 ML IV SCH (19:41)
[2025-02-08] MEDS: HEPARIN SOD 5,000 UNIT/0.5 ML VIAL SQ SCH (20:07)
[2025-02-08] MEDS: PANTOprazole 40 MG/10 ML SYR IV SCH (20:07)
[2025-02-08] MEDS: REMOVE LIDODERM PATCH SCH (20:07)
[2025-02-08 20:40] LABS: Anion Gap 12.0 (3-11); Blood Urea Nitrogen 6.0 mg/dl (6-23); Calcium 8.9 mg/dl (8.6-10.3); Carbon Dioxide 25.0 mmol/L (21-32); Chloride 83.0 mmol/L (98-107); Creatinine Clr Calc Pharmacy 94.7 ml/min; Glucose 114.0 mg/dl (70-99(Fasting)); Potassium 2.8 mmol/L (3.5-5.1); Sodium 120.0 mmol/L (136-145)
[2025-02-08] MEDS ORDERED: FAMOTIDINE 20MG IV PUSH 20 MG/5 ML SYR IV PRN (21:00)
[2025-02-08] MEDS: ONDANSETRON INJ 2 MG/ML 2 ML VIAL IV PRN (22:39)
[2025-02-08 22:45] LABS: Appearance Urine Clear (Clear); Bacteria Urine Automated None Seen (None Seen); Cast Urine Automated 0-2 /lpf (0-2); Epithelial Cell Urine Auto 0-2 /hpf (0-2); Glucose Urine UA Negative (Negative); RBC Urine Automated 0-2 /hpf (0-2); WBC Urine Automated 0-5 /hpf (0-5)
[2025-02-08 23:13] LABS: Magnesium 1.4 mg/dl (1.7-2.4)
[2025-02-08] MEDS: MAGNESIUM SULFATE / D5W 1 GM/100 ML BAG IV SCH (23:42)
[2025-02-09 01:10] LABS: Anion Gap 9.0 (3-11); Blood Urea Nitrogen 5.0 mg/dl (6-23); Calcium 9.0 mg/dl (8.6-10.3); Carbon Dioxide 26.0 mmol/L (21-32); Chloride 89.0 mmol/L (98-107); Creatinine Clr Calc Pharmacy 76.2 ml/min; Glucose 105.0 mg/dl (70-99(Fasting)); Potassium 3.1 mmol/L (3.5-5.1); Sodium 124.0 mmol/L (136-145)
--- NOTE | 2025-02-09 01:33 | Communication Note ---
Date of Service: February 09, 2025 Serum sodium 124 from 117 this a.m. Ap Hyponatremia Rapid correction (Goal sodium of no more than 123 as per Nephrology recommendation as per admitting provider.) Change current NSS to D5 IV fluid
[2025-02-09] MEDS: POTASSIUM CHLORIDE PWD 20 MEQ PACK PO STA (01:53)
[2025-02-09] MEDS: DEXTROSE 5% 500 ML IV ONE (01:53)
[2025-02-09 05:13] LABS: Anion Gap 9.0 (3-11); Blood Urea Nitrogen 5.0 mg/dl (6-23); Calcium 9.1 mg/dl (8.6-10.3); Carbon Dioxide 26.0 mmol/L (21-32); Chloride 91.0 mmol/L (98-107); Creatinine Clr Calc Pharmacy 78.3 ml/min; Glucose 110.0 mg/dl (70-99(Fasting)); Potassium 3.0 mmol/L (3.5-5.1); Sodium 126.0 mmol/L (136-145)
[2025-02-09] MEDS: POTASSIUM CHLORIDE CRTAB 20 MEQ TABCR PO STA (05:27)
[2025-02-09 07:19] LABS: Hemoglobin A1C 6.0 % (4.5-5.6)
[2025-02-09 07:56] LABS: Hematocrit (blood only) 42.0 % (37.0-47.0); Hemoglobin 15.0 g/dL (12.0-16.0); Mean Corpuscular Hemoglobin 28.3 pg (25.0-34.0); Mean Corpuscular Volume 79.2 fL (80.0-100.0); Platelet Count 250 K/uL (130-400); RDW Standard Deviation 34.5 fL (36.4-46.3); Red Blood Count 5.30 M/uL (4.20-5.40); White Blood Count 3.50 K/ul (4.8-10.8)
[2025-02-09] MEDS: POTASSIUM CHLORIDE CRTAB 20 MEQ TABCR PO ONE (07:56)
[2025-02-09] MEDS: POTASSIUM CHLORIDE CRTAB 20 MEQ TABCR PO SCH (08:37)
[2025-02-09 08:55] LABS: Chloride 92.0 mmol/L (98-107); Creatinine Clr Calc Pharmacy 77.2 ml/min
[2025-02-09 09:04] LABS: Anion Gap 13.0 (3-11); Blood Urea Nitrogen 6.0 mg/dl (6-23); Calcium 9.6 mg/dl (8.6-10.3); Carbon Dioxide 23.0 mmol/L (21-32); Glucose 119.0 mg/dl (70-99(Fasting)); Potassium 3.2 mmol/L (3.5-5.1); Sodium 128.0 mmol/L (136-145)
--- NOTE | 2025-02-09 10:52 | Hospitalist Progress Note ---
Date of Service February 09, 2025 Assessment & Plan (1) Hyponatremia: (2) Hypokalemia: (3) COVID-19: (4) Hypertension: (5) Dyslipidemia: (6) Hypothyroidism: (7) GERD (gastroesophageal reflux disease): (8) Anxiety disorder: Plan 74 year old female with PMH significant for hyperlipidemia, hypothyroidism, prediabetes, hypertension, GERD, ulcerative enterocolitis, primary parkinsonism, and anxiety who presents to the ED on 02/08/2025 with illness and was found to have hyponatremia and hypokalemia secondary to dehydration likely from COVID. #Acute Hyponatremia -Sodium 117 on arrival 02/08 -Reviewed labs on epic, Na was 134 07/26/24 -This is an acute drop likely secondary to GI losses and poor PO intake -Hypovolemic hyponatremia -Na improved today to 128 -Improved by 11 mEQ in 24 hours Plan -Given this is likely acute hyponatremia, do not have to be as strict regarding correction of sodium -Hold off on further IVF -Recheck BMP this afternoon -Appreciate nephrology input -Encourage PO intake #Hypokalemia #Hypomagnesemia -Low mag is now corrected -Continue KCl supplementation -Recheck electrolytes in AM #COVID -Symptom onset 7 days ago -CXR images reviewed, no PNA -No hypoxia Plan -Given lack of severity, no indication for treatment of covid. risks outweigh benefits -Symptom control #Vomiting and diarrhea -Secondary to covid -Resolved -Regular diet ordered #Hypertension Hold HCTZ in setting of hyponatremia and dehydration Resume amlodipine 02/09 Hypothyroidism Resume levothyroxine GERD protonix PO Anxiety Resume buspirone when able to tolerate PO DVT Prophylaxis: SQ Heparin Code Status: FULL CODE - As per discussion at bedside with the patient. PCP: Ad Sutton Disposition: admit to PCU I spent a total of 65 minutes coordinating, documenting and providing care for this patient excluding time spent in the performance of separately billed services or time spent by another provider/QHP. Admission and Anticipated Discharge Date Admission Date: February 08, 2025 Subjective Feeling much better today. appetite improving. some cough remains but no fever or SOB. no chest pain palpitations abd pain nv. no more diarrhea. urinating ok Physical Exam Physical Exam: Vitals and labs reviewed General: Well appearing, NAD HEENT: EOMI, PERRLA Neck: Supple Cardiac: RRR no rubs gallops or murmurs Lungs: CTA no rhonchi wheezing or rales Abd: S NT ND BS positive : Deffered MSK: Full ROM. No obvious deformities Ext: No Edema cyanosis Skin: Warm, Dry Neuro: AOx3 No focal deficits. Psych: Normal Mood Results & Data Results & Data Vital Signs (Past 12 Hours) Vital Signs Temp Pulse Pulse Resp BP Pulse Ox O2 Del Method 02/09/25 08:29 36.4 C L 72 20 161/91 H 91 Room Air 02/09/25 08:00 67 02/09/25 03:50 36.6 C 75 18 143/82 H 97 Room Air 02/08/25 23:04 36.9 C 75 18 169/80 H 99 Room Air Laboratory Results Abnormal lab results 02/08/25 02/08/25 02/08/25 Range/Units 10:06 10:27 16:57 WBC 2.23 L (4.8-10.8) K/ul MCV 79.3 L (80.0-100.0) fL MCHC 37.6 H (32.0-36.0) g/dL RDW Std Deviation 33.4 L (36.4-46.3) fL MPV 9.2 L (9.4-12.4) fL Neut # (Auto) 1.07 L (1.40-6.50) K/uL Lymph # (Auto) 0.90 L (1.20-3.40) K/uL Immature Gran # (Auto) 0.00 L (0.01-0.20) K/uL Sodium 117 L* (136-145) mmol/L Potassium 2.7 L (3.5-5.1) mmol/L Chloride 78 L (98-107) mmol/L Anion Gap 12 H (3-11) BUN (6-23) mg/dl Creatinine 0.59 L (0.6-1.2) mg/dl BUN/Creatinine Ratio (10-20) Glucose 147 H (70-99(Fasting)) mg/dl Hemoglobin A1c (4.5-5.6) % Osmolality (280-300) mOsm/kg Calcium (8.6-10.3) mg/dl Magnesium (1.7-2.4) mg/dl Urine pH (4.5-7.5) Urine Protein (Negative) Urine Ketones (Negative) Ur Leukocyte Esterase (Negative) Urine WBC (Auto) (0-5) /hpf Urine Osmolality (500-800) mOsm/kg SARS-CoV-2 (PCR) POSITIVE A DETECTED A (Negative) 02/08/25 02/08/25 02/08/25 Range/Units 17:08 19:46 22:37 WBC (4.8-10.8) K/ul MCV (80.0-100.0) fL MCHC (32.0-36.0) g/dL RDW Std Deviation (36.4-46.3) fL MPV (9.4-12.4) fL Neut # (Auto) (1.40-6.50) K/uL Lymph # (Auto) (1.20-3.40) K/uL Immature Gran # (Auto) (0.01-0.20) K/uL Sodium 117 L* 120 L (136-145) mmol/L Potassium 2.6 L 2.8 L (3.5-5.1) mmol/L Chloride 82 L 83 L (98-107) mmol/L Anion Gap 12 H (3-11) BUN (6-23) mg/dl Creatinine 0.59 L (0.6-1.2) mg/dl BUN/Creatinine Ratio 9.7 L (10-20) Glucose 129 H 114 H (70-99(Fasting)) mg/dl Hemoglobin A1c (4.5-5.6) % Osmolality 249 L (280-300) mOsm/kg Calcium 8.5 L (8.6-10.3) mg/dl Magnesium 1.4 L (1.7-2.4) mg/dl Urine pH 8.0 H (4.5-7.5) Urine Protein (Negative) Urine Ketones (Negative) Ur Leukocyte Esterase Trace H (Negative) Urine WBC (Auto) (0-5) /hpf Urine Osmolality (500-800) mOsm/kg SARS-CoV-2 (PCR) (Negative) 02/08/25 02/09/25 02/09/25 Range/Units Unknown 00:31 04:32 WBC 3.50 L (4.8-10.8) K/ul MCV 79.2 L (80.0-100.0) fL MCHC (32.0-36.0) g/dL RDW Std Deviation 34.5 L (36.4-46.3) fL MPV (9.4-12.4) fL Neut # (Auto) (1.40-6.50) K/uL Lymph # (Auto) (1.20-3.40) K/uL Immature Gran # (Auto) (0.01-0.20) K/uL Sodium 124 L 126 L (136-145) mmol/L Potassium 3.1 L 3.0 L (3.5-5.1) mmol/L Chloride 89 L 91 L (98-107) mmol/L Anion Gap (3-11) BUN 5 L 5 L (6-23) mg/dl Creatinine (0.6-1.2) mg/dl BUN/Creatinine Ratio 6.5 L 6.7 L (10-20) Glucose 105 H 110 H (70-99(Fasting)) mg/dl Hemoglobin A1c 6.0 H (4.5-5.6) % Osmolality (280-300) mOsm/kg Calcium (8.6-10.3) mg/dl Magnesium (1.7-2.4) mg/dl Urine pH (4.5-7.5) Urine Protein Trace H (Negative) Urine Ketones 1+ H (Negative) Ur Leukocyte Esterase Trace H (Negative) Urine WBC (Auto) 6-10 H (0-5) /hpf Urine Osmolality 371 L (500-800) mOsm/kg SARS-CoV-2 (PCR) (Negative) 02/09/25 Range/Units 08:07 WBC (4.8-10.8) K/ul MCV (80.0-100.0) fL MCHC (32.0-36.0) g/dL RDW Std Deviation (36.4-46.3) fL MPV (9.4-12.4) fL Neut # (Auto) (1.40-6.50) K/uL Lymph # (Auto) (1.20-3.40) K/uL Immature Gran # (Auto) (0.01-0.20) K/uL Sodium 128 L (136-145) mmol/L Potassium 3.2 L (3.5-5.1) mmol/L Chloride 92 L (98-107) mmol/L Anion Gap 13 H (3-11) BUN (6-23) mg/dl Creatinine (0.6-1.2) mg/dl BUN/Creatinine Ratio 7.9 L (10-20) Glucose 119 H (70-99(Fasting)) mg/dl Hemoglobin A1c (4.5-5.6) % Osmolality (280-300) mOsm/kg Calcium (8.6-10.3) mg/dl Magnesium (1.7-2.4) mg/dl Urine pH (4.5-7.5) Urine Protein (Negative) Urine Ketones (Negative) Ur Leukocyte Esterase (Negative) Urine WBC (Auto) (0-5) /hpf Urine Osmolality (500-800) mOsm/kg SARS-CoV-2 (PCR) (Negative)
[2025-02-09 13:29] LABS: Anion Gap 10.0 (3-11); Blood Urea Nitrogen 6.0 mg/dl (6-23); Calcium 9.1 mg/dl (8.6-10.3); Carbon Dioxide 23.0 mmol/L (21-32); Chloride 94.0 mmol/L (98-107); Creatinine Clr Calc Pharmacy 81.5 ml/min; Glucose 124.0 mg/dl (70-99(Fasting)); Potassium 3.7 mmol/L (3.5-5.1); Sodium 127.0 mmol/L (136-145)
--- NOTE | 2025-02-09 18:48 | Nephrology Consultation ---
Date of Consultation February 09, 2025 Assessment & Plan (1) Hyponatremia: Presented with critical hyponatremia serum sodium 117 in the setting of severe dehydration with COVID infection. rebounded to 128 then 127 midday today w/ fluid resuscitation Target serum sodium for tomorrow morning is no more than 133 >repeat BMP now > more D5W if sNa > 127 and replete K as needed > will f/u on these later Avoid further NSAIDs which can worsen hyponatremia Continue to hold HCTZ with critical low sodium will need hospital d/c appt w/ nephro to f/u; for now will continue to follow (2) Hypokalemia: 3.7 potassium midday ; needs potassium of 4 in order for sodium to correct appropriately (3) Hypertension: On amlodipine and HCTZ as an outpatient Continue amlodipine; hold HCTZ for now and avoid spironolactone or loop diuretics Consider QUINTIN inhibitor or hydralazine if further blood pressure control needed History of Present Illness Reason for Consultation: hyponatremia Requesting Physician: Dr Smith Attending Physician: Francisco Calderon DO History of Present Illness 74-year-old female whom I am asked to evaluate for hyponatremia was admitted yesterday with COVID and found to have a presenting serum sodium of 117. Past medical history includes hypertension on OP HCTZ, ulcerative enterocolitis on Remicade, parkinsonism, hypothyroid, hyperlipidemia, GERD anxiety, chronic back pain. no consistent hyponatremia as OP. 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 She was not eating and not taking her pills prior to admission. The day prior to ED presentation she had 15-20 episodes of nonbilious nonbloody vomiting and diarrhea prompting her to seek ER evaluation. active emesis in ED and significant head/back/abd pain at that time. She had a 1/2 L NS in ED and sodium levels were unchanged. I worked w/ admitting team on mgt of this patient. Potassium was 2.6, creatinine 0.6, urine sodium 53 urine chloride 71. She was significantly orthostatic with systolic blood pressure dropping over 30 points going from sitting to standing and nearly 60 points going from lying to standing. She had NS overnight at an aggressive rate of 125 mL hourly and K was repleted. Goal was SNa no more than 125 this am. Serum sodium was 128 this AM. At Midodrine) and she received 1/2L D5W. Na 127 midday when potassium also peaked at 3.7. Currently IVF are off; on K 40 mEq bid po x 1 dose so far. Tells me that she feels much improved today. Strength both still limited is returning not quite as fatigued. No shortness of breath no edema. Nausea and vomiting have subsided no abdominal pain. Had a good lunch and a good evening meal. No rash no fever chills no new or worrisome voiding symptoms no confusion Allergies Allergy/AdvReac Type Severity Reaction Status Date / Time clindamycin Allergy Intermediate "MAKES MY Verified 01/18/25 09:05 COLITIS BLEED" pneumococcal vaccine Allergy Intermediate Hives Verified 01/18/25 09:05 amoxicillin Allergy Mild RASH Verified 01/18/25 09:05 citalopram Allergy Mild SICK Verified 01/18/25 09:05 clavulanic acid Allergy Mild RASH Verified 01/18/25 09:05 latex Allergy Mild RASH Verified 01/18/25 09:05 oxycodone Allergy Mild RASH, SICK Verified 01/18/25 09:05 TO STOMACH iodine Allergy Unknown Hives Verified 01/18/25 09:05 Home Medications Medication Instructions Recorded Confirmed Type infliximab 100 mg intravenous 100 mg IV Q8WK 01/31/19 02/08/25 History solution (Remicade) amlodipine 5 mg tablet (Norvasc) 5 mg PO QAM 05/01/19 02/08/25 History buspirone 10 mg tablet 10 mg PO BID 05/01/19 02/08/25 History cholecalciferol (vitamin D3) 25 1,000 units PO QAM 05/01/19 02/08/25 History mcg (1,000 unit) capsule (Vitamin D3) clotrimazole-betamethasone 1 1 appln topical BID PRN Rash 05/01/19 02/08/25 History %-0.05 % topical cream hydrochlorothiazide 25 mg tablet 25 mg PO QAM 05/01/19 02/08/25 History levothyroxine 100 mcg capsule 100 mcg PO QAM 05/01/19 02/08/25 History potassium chloride 20 mEq 20 meq PO QPM 05/01/19 02/08/25 History tablet,extended release pantoprazole 40 mg tablet,delayed 40 mg PO BID #60 tabs 09/25/20 02/08/25 Rx release cyanocobalamin (vitamin B-12) 1,000 mcg PO QAM 12/15/22 02/08/25 History 1,000 mcg tablet (Vitamin B-12) Patient History Medical History Hypothyroidism Hyperlipidemia NO MEDS Hypertension CKD (chronic kidney disease) pt denies Anxiety Internal hemorrhoids Ischemic colitis hx Multiple thyroid nodules HASN'T HAD CHECKED IN APPROX 6 YRS History of kidney stones PASSED ON OWN GERD (gastroesophageal reflux disease) Surgical History Hx of bilateral cataract extraction History of total abdominal hysterectomy and bilateral salpingo-oophorectomy History of colonoscopy with polypectomy History of esophagogastroduodenoscopy (EGD) History of cholecystectomy History of tooth extraction History of cardiac cath x2--09/2015 and 04/26/2019 @ [facility] no stents-both done "pain in her left side, wasn't able to complete the stress tests; no cardio. History of tonsillectomy and adenoidectomy Family History Mother Family history of diabetes mellitus Father Family hx colonic polyps Other No family history of adverse response to anesthesia Social History Smoking Status: Never smoker Second Hand Exposure: Yes (hx); Do You Dip or Chew Tobacco: No; Hx Alcohol Use: No Hx Substance Use: No Preferred Language: Tuvaluan Communication Ability: Effective Rug Frame Mounter Required: No Beliefs That Will Affect Care: None marital status: Current Living Situation: Alone How many Children do You have: 2 Feels Safe at Home: Yes Assistive Devices: None and Cane Review of Systems 2 Review of Systems: All systems reviewed & are unremarkable except as noted in HPI & below Physical Exam 2 Constitutional: well developed, well nourished and cooperative; no acute distress Eyes: EOM intact bilaterally ENMT: Mouth: + dry oral mucous membranes Respiratory: normal respiratory effort Auscultation: + diminished lung sounds Cardiovascular: RRR, no murmur, no edema Gastrointestinal (Abdomen): Inspection/Auscultation: normal bowel sounds P ercussion/Palpation: abdomen soft; abdomen nontender Musculoskeletal: Extremities: strength 5/5 throughout Skin: no rashes, warm and dry Neurologic: vega, fluent speech, fine pill rolling L hand tremor Results & Data Vital Signs (Past 12 Hours) Vital Signs Temp Pulse Pulse Resp BP Pulse Ox O2 Del Method 02/09/25 17:10 36.4 C L 77 19 139/84 990 H Room Air 02/09/25 14:49 76 02/09/25 12:29 36.7 C 80 20 122/80 99 Room Air 02/09/25 08:29 36.4 C L 72 20 161/91 H 91 Room Air 02/09/25 08:00 67 Laboratory Results 02/09/25 04:32 02/09/25 12:21 Diagnostic Findings Chest x-ray and head CT are without acute findings
[2025-02-09] MEDS: busPIRone 5 MG TAB PO SCH (20:30)
[2025-02-09 21:33] LABS: Anion Gap 5.0 (3-11); Blood Urea Nitrogen 10.0 mg/dl (6-23); Calcium 9.2 mg/dl (8.6-10.3); Carbon Dioxide 26.0 mmol/L (21-32); Chloride 96.0 mmol/L (98-107); Creatinine Clr Calc Pharmacy 53.9 ml/min; Glucose 119.0 mg/dl (70-99(Fasting)); Potassium 4.1 mmol/L (3.5-5.1); Sodium 127.0 mmol/L (136-145)
[2025-02-10 06:21] LABS: Hematocrit (blood only) 37.3 % (37.0-47.0); Hemoglobin 13.8 g/dL (12.0-16.0); Mean Corpuscular Hemoglobin 30.4 pg (25.0-34.0); Mean Corpuscular Volume 82.2 fL (80.0-100.0); Platelet Count 247 K/uL (130-400); RDW Standard Deviation 36.6 fL (36.4-46.3); Red Blood Count 4.54 M/uL (4.20-5.40); White Blood Count 4.10 K/ul (4.8-10.8)
[2025-02-10] MEDS: LEVOTHYROXINE SODIUM 100 MCG TABLET PO SCH (06:24)
[2025-02-10 06:39] LABS: Anion Gap 7.0 (3-11); Blood Urea Nitrogen 11.0 mg/dl (6-23); Calcium 9.3 mg/dl (8.6-10.3); Carbon Dioxide 24.0 mmol/L (21-32); Chloride 98.0 mmol/L (98-107); Creatinine Clr Calc Pharmacy 65.9 ml/min; Glucose 98.0 mg/dl (70-99(Fasting)); Potassium 4.7 mmol/L (3.5-5.1); Sodium 129.0 mmol/L (136-145)
--- NOTE | 2025-02-10 09:54 | Hospitalist Progress Note ---
Date of Service February 10, 2025 Assessment & Plan (1) Hyponatremia: (2) Hypokalemia: (3) COVID-19: (4) Hypertension: (5) Dyslipidemia: (6) Hypothyroidism: (7) GERD (gastroesophageal reflux disease): (8) Anxiety disorder: Plan 74 year old female with PMH significant for hyperlipidemia, hypothyroidism, prediabetes, hypertension, GERD, ulcerative enterocolitis, primary parkinsonism, and anxiety who presents to the ED on 02/08/2025 with illness and was found to have hyponatremia and hypokalemia secondary to dehydration likely from COVID. #Acute Hyponatremia -Sodium 117 on arrival 02/08 -Reviewed labs on epic, Na was 134 07/26/24 -This is an acute drop likely secondary to GI losses and poor PO intake -Hypovolemic hyponatremia -Na improved today to 129 Plan -Hold off on further IVF -Recheck BMP tomorrow morning -If Na stable or improved, DC home tomorrow -Appreciate nephrology input -Encourage PO intake #Hypokalemia #Hypomagnesemia -Low mag is now corrected -Hypokalemia resolved -Recheck electrolytes in AM #COVID -Symptom onset 7 days ago -CXR images reviewed, no PNA -No hypoxia Plan -Given lack of severity, no indication for treatment of covid. risks outweigh benefits -Symptom control #Vomiting and diarrhea -Secondary to covid -Resolved -Regular diet ordered and tolerating #Hypertension Hold HCTZ in setting of hyponatremia and dehydration Resume amlodipine 02/09 Hypothyroidism Resume levothyroxine GERD protonix PO Anxiety Resume buspirone when able to tolerate PO DVT Prophylaxis: SQ Heparin Code Status: FULL CODE - As per discussion at bedside with the patient. PCP: Ad Sutton Disposition: admit to PCU I spent a total of 42 minutes coordinating, documenting and providing care for this patient excluding time spent in the performance of separately billed services or time spent by another provider/QHP. Admission and Anticipated Discharge Date Admission Date: February 08, 2025 Subjective continues to improve. she would like to go home. no complaints. Physical Exam Physical Exam: Vitals and labs reviewed General: Well appearing, NAD HEENT: EOMI, PERRLA Neck: Supple Cardiac: RRR no rubs gallops or murmurs Lungs: CTA no rhonchi wheezing or rales Abd: S NT ND BS positive : Deffered MSK: Full ROM. No obvious deformities Ext: No Edema cyanosis Skin: Warm, Dry Neuro: AOx3 No focal deficits. Psych: Normal Mood Results & Data Results & Data Vital Signs (Past 12 Hours) Vital Signs Temp Pulse Pulse Resp BP Pulse Ox O2 Del Method 02/10/25 07:48 71 02/10/25 07:44 36.4 C L 73 18 151/88 H 99 Room Air 02/10/25 02:55 36.6 C 86 20 152/78 H 94 Room Air 02/09/25 23:11 36.9 C 70 18 146/78 H 96 Room Air Laboratory Results Abnormal lab results 02/09/25 02/09/25 02/10/25 Range/Units 12:21 20:55 05:54 WBC 4.10 L (4.8-10.8) K/ul MCHC 37.0 H (32.0-36.0) g/dL MPV 8.8 L (9.4-12.4) fL Sodium 127 L 127 L 129 L (136-145) mmol/L Chloride 94 L 96 L (98-107) mmol/L BUN/Creatinine Ratio 8.3 L 9.2 L (10-20) Glucose 124 H 119 H (70-99(Fasting)) mg/dl
[2025-02-10 15:57] VITALS: RESP 20
[2025-02-11 03:47] VITALS: TEMP 98.2
[2025-02-11 06:35] LABS: Anion Gap 7.0 (3-11); Blood Urea Nitrogen 12.0 mg/dl (6-23); Calcium 9.6 mg/dl (8.6-10.3); Carbon Dioxide 24.0 mmol/L (21-32); Chloride 100.0 mmol/L (98-107); Creatinine Clr Calc Pharmacy 68.3 ml/min; Glucose 99.0 mg/dl (70-99(Fasting)); Potassium 4.7 mmol/L (3.5-5.1); Sodium 131.0 mmol/L (136-145)
[2025-02-11 08:44] VITALS: BP 144/87; PULSE 94; O2SAT 96
--- NOTE | 2025-02-11 09:02 | Discharge Summary ---
Discharge Summary Date of Service February 11, 2025 Principal Dx & Hospital Course #1 = Principal Diagnosis (1) Hyponatremia: (2) Hypokalemia: (3) COVID-19: (4) Hypertension: (5) Dyslipidemia: (6) Hypothyroidism: (7) GERD (gastroesophageal reflux disease): (8) Anxiety disorder: Plan 74 year old female with PMH significant for hyperlipidemia, hypothyroidism, prediabetes, hypertension, GERD, ulcerative enterocolitis, primary parkinsonism, and anxiety who presents to the ED on 02/08/2025 with illness and was found to have hyponatremia and hypokalemia secondary to dehydration likely from COVID in setting of hctz use.. She was given IVF in the ED. Her sodium improved to 127 the following day without IVF. nephrology was consulted. she clinically improved as did her PO intake. Today her Na improved to 131. She feels well and wishes to go home. she will f/u with nephrology as OP. her HCTZ was DC and her norvasc increased to 10mg daily #Acute Hyponatremia -Sodium 117 on arrival 02/08 -Reviewed labs on [facility], Na was 134 07/26/24 -This is an acute drop likely secondary to GI losses and poor PO intake -Hypovolemic hyponatremia -Na improved today to 131 #Hypokalemia #Hypomagnesemia -Low mag is now corrected -Hypokalemia resolved -Recheck electrolytes in AM #COVID -Symptom onset 7 days ago -CXR images reviewed, no PNA -No hypoxia Plan -Given lack of severity, no indication for treatment of covid. risks outweigh benefits -Symptom control #Vomiting and diarrhea -Secondary to covid -Resolved -Regular diet ordered and tolerating #Hypertension Hypothyroidism Resume levothyroxine GERD protonix PO Anxiety Resume buspirone when able to tolerate PO DVT Prophylaxis: SQ Heparin Code Status: FULL CODE - As per discussion at bedside with the patient. PCP: Ad Sutton Disposition: admit to PCU I spent a total of 38 minutes coordinating, documenting and providing care for this patient excluding time spent in the performance of separately billed services or time spent by another provider/QHP. Notes For Next Care Provider Medication Changes From Visit hctz kcl dc norvasc increased to 10mg Admission HPI Per Admitting Provider 74 year old female with PMH significant for hyperlipidemia, hypothyroidism, p rediabetes, hypertension, GERD, ulcerative enterocolitis, primary parkinsonism, and anxiety who presents to the ED on 02/08/2025 with illness. Patient reports she was working the [employer] last Wednesday and woke up last Wednesday with a sore throat. This progressed to a productive cough, headache, congestion, poor appetite. Then last night she developed vomiting and diarrhea where she notes 15-20 episodes of nonbloody vomiting and diarrhea. This prompted her to be evaluated in the ED today. Currently feels very weak and fatigued, is nauseous and actively vomiting in the ED, complaining of generalized abdominal pain, headache and back pain. Had a recent epidural spinal injection with pain management for chronic back pain. She denies fevers, chest pain and SOB. Discharge Exam Vitals and labs reviewed General: Well appearing, NAD HEENT: EOMI, PERRLA Neck: Supple Cardiac: RRR no rubs gallops or murmurs Lungs: CTA no rhonchi wheezing or rales Abd: S NT ND BS positive : Deffered MSK: Full ROM. No obvious deformities Ext: No Edema cyanosis Skin: Warm, Dry Neuro: AOx3 No focal deficits. Psych: Normal Mood Updated Medication List Medication Instructions Recorded Confirmed Type infliximab 100 mg intravenous 100 mg IV Q8WK 01/31/19 02/08/25 History solution (Remicade) buspirone 10 mg tablet 10 mg PO BID 05/01/19 02/08/25 History cholecalciferol (vitamin D3) 25 1,000 units PO QAM 05/01/19 02/08/25 History mcg (1,000 unit) capsule (Vitamin D3) clotrimazole-betamethasone 1 1 appln topical BID PRN Rash 05/01/19 02/08/25 History %-0.05 % topical cream levothyroxine 100 mcg capsule 100 mcg PO QAM 05/01/19 02/08/25 History pantoprazole 40 mg tablet,delayed 40 mg PO BID #60 tabs 09/25/20 02/08/25 Rx release cyanocobalamin (vitamin B-12) 1,000 mcg PO QAM 12/15/22 02/08/25 History 1,000 mcg tablet (Vitamin B-12) amlodipine 10 mg tablet (Norvasc) 10 mg PO DAILY #30 tabs 02/11/25 Rx Hospital Stay Data Consultations 02/08/25 15:13 ED Decision to Admit Stat 02/08/25 18:26 Consult Nephrology Routine Diagnostic Imagining Performed 02/08/25 14:27 CT head/brain wo con Stat Pending Results Patient Have Any Pending Studies at Discharge: No Discharge Instructions Given to Patient (Per Discharging Provider) Please stay hydrated at home. ok to drink a bottle of gatorade a day. please call and schedule an appt with Dr López. Stop taking the hydrochlorothiazide and potassium supplements. Your amlodipine dose was doubled to 10mg daily to account for stopping the diuretic. Total Time Total Time Spent Total Time Spent (In Minutes): 38
== END 2025-02-11 10:21 | disposition home or self-care (01) | DRG 178 ==
LOC: ED 10:00 → 4W 16:12 → SUATTDRO 16:12 → 4W 19:00